=== PATIENT | male | born 1955 | race Caucasian/White ===

== ENCOUNTER 2016-07-13 07:15 | Inpatient (IN) | payer OTHER ==
--- NOTE | 2016-07-13 07:19 | PDOC ---
[id number] 4d CHEST PAIN Time Seen by Provider: 07/13/16 07:19 History Source: Patient Exam Limitations: No Limitations - History of Present Illness Initial Comments: 60 yo M history DM2, anemia presents with abrupt onset substernal chest pain x1.5 hrs. He states that he woke up with the pain around 5:30am, felt short of breath with pain radiating down his right arm. +Sweating, nausea, vomiting. No prior similar symptoms. No prior cardiac history. Past History - Past Medical History Allergies/Adverse Reactions: Allergies Allergy/AdvReac Type Severity Reaction Status Date / Time No Known Allergies Allergy Verified 07/13/16 08:18 Home Medications: Ambulatory Orders Allopurinol [Zyloprim] 300 mg PO DAILY 12/25/11 Folic Acid - 1 mg PO DAILY 12/25/11 Metformin HCl [Glucophage] 1,000 mg PO BID 12/25/11 Canagliflozin [Invokana] 100 mg PO DAILY 07/13/16 Doxycycline Hyclate 100 mg PO BID 07/13/16 Ibuprofen [Motrin -] 600 mg PO PRN PRN 07/13/16 Anemia: Yes Diabetes: Yes - Psycho/Social/Smoking Cessation Hx Anxiety: No Suicidal Ideation: No Smoking Status: No Smoking History: Unknown if ever smoked Number of Cigarettes Smoked Daily: 0 Review of Systems - Review of Systems Able to Perform ROS?: Yes Comments:: GENERAL/CONSTITUTIONAL: No fever or chills. No weakness. HEAD, EYES, EARS, NOSE AND THROAT: No change in vision. No ear pain or discharge. No sore throat. CARDIOVASCULAR: +Chest pain and shortness of breath. RESPIRATORY: No cough, wheezing, or hemoptysis. GASTROINTESTINAL: +Nausea, vomiting. No diarrhea or constipation. GENITOURINARY: No dysuria, frequency, or change in urination. MUSCULOSKELETAL: No joint or muscle swelling or pain. No neck or back pain. SKIN: No rash NEUROLOGIC: No headache, vertigo, loss of consciousness, or change in strength/ sensation. ENDOCRINE: No increased thirst. No abnormal weight change. HEMATOLOGIC/LYMPHATIC: No anemia, easy bleeding, or history of blood clots. ALLERGIC/IMMUNOLOGIC: No hives or skin allergy. *Physical Exam - Physical Exam Comments: GENERAL: Awake, alert, and fully oriented. Anxious. HEAD: No signs of trauma EYES: PERRLA, EOMI, sclera anicteric, conjunctiva clear ENT: Auricles normal inspection, hearing grossly normal, nares patent, oropharynx clear without exudates. Moist mucosa NECK: Normal ROM, supple, no lymphadenopathy, JVD, or masses LUNGS: Breath sounds equal, clear to auscultation bilaterally. No wheezes, and no crackles HEART: Regular rate and rhythm, normal S1 and S2, no murmurs, rubs or gallops ABDOMEN: Soft, nontender, normoactive bowel sounds. No guarding, no rebound. No masses EXTREMITIES: Normal range of motion, no edema. No clubbing or cyanosis. No cords, erythema, or tenderness NEUROLOGICAL: Cranial nerves II through XII grossly intact. Normal speech, normal gait SKIN: Warm, Dry, normal turgor, no rashes or lesions noted. Heart Score/ECG Review - History History: Highly suspicious - Electrocardiogram EKG: Non specific repolarization disturbance - Age Age: 45-65 - Risk Factors Risk Factors Heart Score: Yes Hx Diabetes Based on the list above the patient has:: 1-2 risk factors - Troponin Troponin: </= normal limit - Score Heart Score - Total: 5 - ECG Impressions Comment:: 07/13/16 07:27 EKG read 07:22- NSR 73 bpm, RBBB, no acute ST/T changes. +Motion artifact. 07/13/16 07:41 Repeat EKG- 76 bpm, RBBB, no ST/T changes. ED Treatment Course - LABORATORY CBC & Chemistry Diagram: 07/13/16 05:00 07/13/16 07:25 Medical Decision Making - Critical Care Time Total Critical Care Time (minutes): 35 Critical Care Statement: The care of this patient involved high complexity decision making to prevent further life threatening deterioration of the patient 's condition and/or to evalute & treat vital organ system(s) failure or risk of failure. - Medical Decision Making 07/13/16 07:47 Pt states his symptoms have improved with aspirin and nitro. Repeat EKG with no ST elevations (initial EKGs limited by motion artifact). Will cont to monitor. Awaiting Steve, then admission vs transfer depending on results. *DC/Admit/Observation/Transfer Diagnosis at time of Disposition: Chest pain Qualifiers: Chest pain type: unspecified Qualified Code(s): R07.9 - Chest pain, unspecified - Discharge Dispostion Condition at time of disposition: Guarded Admit: Yes
[2016-07-13] MEDS ORDERED: ASPIRIN 81 MG CHEWABLE TABLETS PO ONE (07:22)
[2016-07-13] MEDS ORDERED: NITROGLYCERIN SUBLINGUAL 1/150 0.4 MG TAB SL ONE (07:24)
[2016-07-13] MEDS ORDERED: ASPIRIN 81 MG CHEWABLE TABLETS ONE (07:30)
[2016-07-13 07:31] VITALS: BMI 23.7
[2016-07-13] MEDS ORDERED: NITROGLYCERIN SUBLINGUAL 1/150 0.4 MG TAB ONE (07:31)
[2016-07-13 07:54] LABS: BASOPHIL 1.5 % (0-2.0); EOSINOPHIL 1.4 % (0-4.5); MCH 29.4 pg (25.7-33.7); MCHC 34.2 g/dl (32.0-35.9); MEAN CELL VOLUME 86.1 fl (80-96); MEAN PLT VOLUME 11.1 fl (7.5-11.1); NEUTROPHILS 47.9 % (42.8-82.8); PLATELET COUNT 192 K/MM3 (134-434); RDW 13.4 % (11.9-15.9); WHITE BLOOD COUNT 4.9 K/mm3 (4.0-10.0)
[2016-07-13 08:10] LABS: ALBUMIN 4.5 g/dl (3.5-5.0); ALK PHOS 52 U/L (32-92); ANION GAP 11 (8-16); BILIRUBIN,TOTAL 0.9 mg/dl (0.2-1.0); CALCIUM 9.3 mg/dl (8.4-10.2); CO2 22 mmol/L (22-28); CREATININE 0.9 mg/dl (0.6-1.3); GLUCOSE,RANDOM 199 mg/dl (74-106); SGOT/AST 45 U/L (10-42); SGPT/ALT 30 U/L (10-40); TOT PROT 7.3 g/dl (6.4-8.3)
[2016-07-13 08:21] LABS: ACTIVATED PTT 26.5 SECONDS (24.0-38.9); INR 1.04 (0.82-1.09); PROTHROMBIN TIME (PATIENT) 11.6 SEC (10.2-13.0)
[2016-07-13 08:48] LABS: TROPONIN I (DFP) 0.13 ng/ml (0.03-0.50)
[2016-07-13] MEDS ORDERED: NITROGLYCERIN SUBLINGUAL 1/150 0.4 MG TAB SL PRN ×2 (09:00→12:20)
[2016-07-13] MEDS ORDERED: ACETAMINOPHEN 325 MG TABLET (FP) PO PRN (09:00)
[2016-07-13] MEDS ORDERED: ONDANSETRON 4 MG/2 ML VIAL IVPB PRN (09:00)
--- NOTE | 2016-07-13 09:05 | HP ---
CHIEF COMPLAINT: Chest pain PCP: Dr. Vazquez HISTORY OF PRESENT ILLNESS: This is a 60 year old male with a history of NIDDM who presented to the [facility] ED today complaining of sudden onset of chest pain at about 5:45am. The patient was awake but laying in bed at the time. He reports radiation of the pain down both arms (R>L) and associated shortness of breath. He took Motrin without relief of pain. He then vomited several times. On arrival to the ED, he was noted to be diaphoretic. Of note, the patient was recently diagnosed with influenza at an urgent care on Thursday, 07/09 and was prescribed Tamiflu (which he did not take) and doxycycline (which he is taking). 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 Smoking: Former regular smoker, still smokes occasionally Alcohol: None Family History: Mother with CAD/VT at age 72 Allergies No Known Allergies Allergy (Verified 07/13/16 08:18) HOME MEDICATIONS: Home Medications Medication Instructions Recorded Allopurinol [Zyloprim] 100 mg PO DAILY 12/25/11 Folic Acid - 1 mg PO DAILY 12/25/11 Metformin HCl [Glucophage] 250 mg PO BID 12/25/11 Doxycycline Hyclate 100 mg PO BID 07/13/16 Ibuprofen [Motrin -] 600 mg PO PRN PRN 07/13/16 REVIEW OF SYSTEMS CONSTITUTIONAL: Absent: fever, chills, diaphoresis, generalized weakness, malaise, loss of appetite, weight change HEENT: Absent: rhinorrhea, nasal congestion, throat pain, throat swelling, difficulty swallowing, mouth swelling, ear pain, eye pain, visual changes CARDIOVASCULAR: See HPI RESPIRATORY: Cough productive of scant sputum Absent: dyspnea with exertion, orthopnea, wheezing, stridor, hemoptysis GASTROINTESTINAL: Absent: abdominal pain, abdominal distension, nausea, vomiting, diarrhea, constipation, melena, hematochezia GENITOURINARY: Absent: dysuria, frequency, urgency, hesitancy, hematuria, flank pain, genital pain MUSCULOSKELETAL: Absent: myalgia, arthralgia, joint swelling, back pain, neck pain SKIN: Absent: rash, itching, pallor HEMATOLOGIC/IMMUNOLOGIC: Absent: easy bleeding, easy bruising, lymphadenopathy, frequent infections ENDOCRINE: Absent: unexplained weight gain, unexplained weight loss, heat intolerance, cold intolerance NEUROLOGIC: Absent: headache, focal weakness or paresthesias, dizziness, unsteady gait, seizure, mental status changes, bladder or bowel incontinence PSYCHIATRIC: "Under a lot of stress lately", not sleeping well Absent: depression, suicidal or homicidal ideation, hallucinations. PHYSICAL EXAMINATION Vital Signs - 24 hr 07/13/16 07/13/16 07/13/16 07:16 07:45 08:15 Temperature 97.4 F L Pulse Rate 90 Pulse Rate [ 80 75 Apical] Respiratory 24 14 18 Rate Blood Pressure 151/97 Blood Pressure 135/81 132/81 [Arm] O2 Sat by Pulse 100 99 100 Oximetry (%) 07/13/16 08:38 Temperature Pulse Rate Pulse Rate [ 76 Apical] Respiratory 16 Rate Blood Pressure Blood Pressure 132/74 [Arm] O2 Sat by Pulse 100 Oximetry (%) GENERAL: Awake, alert, and fully oriented, in no acute distress. HEAD: Normal with no signs of trauma. EYES: Pupils equal, round and reactive to light, extraocular movements intact, sclera anicteric, conjunctiva clear. No lid lag. EARS, NOSE, THROAT: Ears normal, nares patent, oropharynx clear without exudates. Moist mucous membranes. NECK: Normal range of motion, supple without lymphadenopathy, JVD, or masses. LUNGS: Breath sounds equal, clear to auscultation bilaterally. No wheezes, and no crackles. No accessory muscle use. HEART: Regular rate and rhythm, normal S1 and S2 without murmur, rub or gallop. ABDOMEN: Soft, nontender, not distended, normoactive bowel sounds, no guarding, no rebound, no masses. No hepatomegaly or splenomegaly. MUSCULOSKELETAL: Normal range of motion at all joints. No bony deformities or tenderness. No CVA tenderness. UPPER EXTREMITIES: 2+ pulses, warm, well-perfused. No cyanosis. No clubbing. No peripheral edema. LOWER EXTREMITIES: 2+ pulses, warm, well-perfused. No calf tenderness. No peripheral edema. NEUROLOGICAL: Cranial nerves II-XII intact. Normal speech. Normal gait. PSYCHIATRIC: Anxious affect. SKIN: Warm, dry, normal turgor, no rashes or lesions noted, normal capillary refill. Laboratory Results - last 24 hr 07/13/16 07/13/16 07/13/16 05:00 07:25 07:25 WBC 4.9 D RBC 5.77 H Hgb 17.0 H Hct 49.7 H MCV 86.1 MCHC 34.2 RDW 13.4 Plt Count 192 MPV 11.1 Neutrophils % 47.9 D Lymphocytes % 35.5 D Monocytes % 13.7 H Eosinophils % 1.4 D Basophils % 1.5 D INR 1.04 PTT (Actin FS) 26.5 Sodium 136 Potassium 3.9 Chloride 103 Carbon Dioxide 22 Anion Gap 11 BUN 22 H D Creatinine 0.9 D Creat Clearance w eGFR > 60 Random Glucose 199 H Calcium 9.3 Total Bilirubin 0.9 D AST 45 H D ALT 30 D Alkaline Phosphatase 52 Creatine Kinase Troponin I Total Protein 7.3 Albumin 4.5 07/13/16 07:37 WBC RBC Hgb Hct MCV MCHC RDW Plt Count MPV Neutrophils % Lymphocytes % Monocytes % Eosinophils % Basophils % INR PTT (Actin FS) Sodium Potassium Chloride Carbon Dioxide Anion Gap BUN Creatinine Creat Clearance w eGFR Random Glucose Calcium Total Bilirubin AST ALT Alkaline Phosphatase Creatine Kinase 148 Troponin I 0.13 Total Protein Albumin ASSESSMENT/PLAN: 60 year old male with chest pain. 1. Chest pain -Monitor on telemetry -Serial troponins to rule out VT -Check lipid profile -Continue ntg SL as needed for chest pain -Continue ASA 81mg daily -Echocardiogram -Cardiology evaluation 2. NIDDM -Hold Metformin/Invokana while inpatient -ISS, FSACHS -Diabetic diet -Check HgbA1C 3. Ppx -Lovenox 40mg sq daily -Ambulation DISPO: Transfer to telemetry at [facility]. Visit type - Emergency Visit Emergency Visit: Yes ED Registration Date: 07/13/16 Care time: The patient presented to the Emergency Department on the above date and was hospitalized for further evaluation of their emergent condition. - New Patient This patient is new to me today: Yes Date on this admission: 07/13/16 - Critical Care Critical Care patient: Yes Total Critical Care Time (in minutes): 35 Critical Care Statement: The care of this patient involved high complexity decision making to prevent further life threatening deterioration of the patient 's condition and/or to evalute & treat vital organ system(s) failure or risk of failure.
[2016-07-13 09:20] LABS: CHOLESTEROL 167 mg/dl
[2016-07-13] MEDS ORDERED: ALLOPURINOL 100 MG TABLET (FP) PO SCH (10:00)
[2016-07-13] MEDS ORDERED: ENOXAPARIN NA (PORCINE) 40 MG/0.4 ML DISP.SYRIN SQ SCH (10:00)
[2016-07-13] MEDS ORDERED: ASPIRIN COATED 81 MG TABLET.EC PO SCH (10:00)
[2016-07-13] MEDS ORDERED: FOLIC ACID 1 MG TABLET (FP) PO SCH (10:00)
--- NOTE | 2016-07-13 11:22 | EKG ---
Test Reason : Blood Pressure : / mmHG Vent. Rate : 076 BPM Atrial Rate : 076 BPM P-R Int : 158 ms QRS Dur : 128 ms QT Int : 424 ms P-R-T Axes : 047 040 029 degrees QTc Int : 477 ms NORMAL SINUS RHYTHM RIGHT BUNDLE BRANCH BLOCK POSSIBLE INFERIOR INFARCT , AGE UNDETERMINED NO PREVIOUS ECGS AVAILABLE Confirmed by MD MALDONADO MARJORY ([id number]) on 07/13/2016 11:22:03 AM Referred By: MICHELLE RICO Confirmed By:SARAI MALDONADO MD
[2016-07-13] MEDS: INSULIN SLIDING SCALE (NOVOLOG) 1 VIAL SQ SCH ×3 (11:24→22:34)
[2016-07-13] MEDS ORDERED: ALLOPURINOL 300 MG TABLET (FP) PO SCH (12:00)
[2016-07-13] MEDS: ALPRAZolam 0.25 MG TABLET PO PRN ×2 (12:53→19:47)
[2016-07-13 15:15] LABS: TROPONIN I 2.32 ng/ml (0.00-0.05)
--- NOTE | 2016-07-13 16:07 | HOSP ---
Subjective - Review of Symptoms Events since last encounter: Patient has complained of intermittent discomfort across his chest and down his right arm associated with nausea. He denies palpitations, diaphoresis, shortness of breath. He has had some relief with SLNTG and Xanax. Currently he has no pain. Troponin I 0.15 -> 2.32. Sinus bradycardia noted on monitor. Physical Examination Vital Signs: Vital Signs Temperature 98.7 F 07/13/16 14:33 Pulse Rate 66 07/13/16 14:33 Respiratory Rate 18 07/13/16 14:33 Blood Pressure 150/90 07/13/16 14:33 O2 Sat by Pulse Oximetry (%) 100 07/13/16 14:33 Constitutional: Yes: Anxious Cardiovascular: Yes: Bradycardia, S1, S2. No: JVD, Gallop, Murmur, Rub Respiratory: Yes: CTA Bilaterally Gastrointestinal: Yes: Normal Bowel Sounds, Soft. No: Distention, Tenderness Edema: No Peripheral Pulses WNL: Yes Neurological: Yes: Alert, Oriented Labs: Laboratory Tests 07/13/16 07/13/16 07/13/16 05:00 07:25 07:25 WBC 4.9 D RBC 5.77 H Hgb 17.0 H Hct 49.7 H MCV 86.1 MCHC 34.2 RDW 13.4 Plt Count 192 MPV 11.1 Neutrophils % 47.9 D Lymphocytes % 35.5 D Monocytes % 13.7 H Eosinophils % 1.4 D Basophils % 1.5 D INR 1.04 PTT (Actin FS) 26.5 Sodium 136 Potassium 3.9 Chloride 103 Carbon Dioxide 22 Anion Gap 11 BUN 22 H D Creatinine 0.9 D Creat Clearance w eGFR > 60 POC Glucometer Random Glucose 199 H Calcium 9.3 Total Bilirubin 0.9 D AST 45 H D ALT 30 D Alkaline Phosphatase 52 Creatine Kinase Creatine Kinase Index CK-MB (CK-2) CK-MB (CK-2) Rel Index Troponin I Total Protein 7.3 Albumin 4.5 Triglycerides Cholesterol Total LDL Cholesterol HDL Cholesterol 07/13/16 07/13/16 07/13/16 07:25 07:37 11:18 WBC RBC Hgb Hct MCV MCHC RDW Plt Count MPV Neutrophils % Lymphocytes % Monocytes % Eosinophils % Basophils % INR PTT (Actin FS) Sodium Potassium Chloride Carbon Dioxide Anion Gap BUN Creatinine Creat Clearance w eGFR POC Glucometer 114 Random Glucose Calcium Total Bilirubin AST ALT Alkaline Phosphatase Creatine Kinase 148 Creatine Kinase Index CK-MB (CK-2) CK-MB (CK-2) Rel Index Troponin I 0.13 Total Protein Albumin Triglycerides 239 H Cholesterol 167 Total LDL Cholesterol 93 HDL Cholesterol 26 L 07/13/16 07/13/16 07/13/16 13:35 13:35 13:56 WBC RBC Hgb Hct MCV MCHC RDW Plt Count MPV Neutrophils % Lymphocytes % Monocytes % Eosinophils % Basophils % INR PTT (Actin FS) Sodium Potassium Chloride Carbon Dioxide Anion Gap BUN Creatinine Creat Clearance w eGFR POC Glucometer 147 Random Glucose Calcium Total Bilirubin AST ALT Alkaline Phosphatase Creatine Kinase 267 Creatine Kinase Index 5.4 H CK-MB (CK-2) 14.459 H CK-MB (CK-2) Rel Index Cancelled Troponin I 2.32 H* Total Protein Albumin Triglycerides Cholesterol Total LDL Cholesterol HDL Cholesterol EKG: Sinus rhythm, rate 61, RBBB, inferior Q waves, unchanged from earlier Hospitalist Encounter Assessment: Acute NSTEMI Recommendations/Interventions: 1. Continue aspirin 2. Start Lipitor 3. Start heparin IV drip 4. No beta can secondary to bradycardia 5. Oxygen @ 2 LPM 6. Morphine 2 mg IVP as needed 7. Nitroglycerin IV drip for persistent chest pain 8. Continue to follow troponin 9. Echocardiogram 10. Cardiology consult for catheterization Discussed with Dr. Stevenson, the patient and the patient's .
[2016-07-13] MEDS ORDERED: HEPARIN NA (PORCINE) 5,000 UNITS/ML 1ML VIAL IVPUSH ONE (16:08)
[2016-07-13] MEDS ORDERED: HEPARIN NA (PORCINE) 5,000 UNITS/ML 1ML VIAL IVPUSH PRN ×2 (16:08)
[2016-07-13] MEDS ORDERED: ATORVASTATIN CA 80 MG TABLET (FP) PO SCH ×2 (16:15→22:00)
[2016-07-13] MEDS ORDERED: HEPARIN INFUSION - 500 ML IV SCH (16:15)
[2016-07-13] MEDS ORDERED: metFORMIN HCL 500 MG TABLET (FP) PO SCH (16:30)
[2016-07-13] MEDS ORDERED: HEPARIN - 25,000 UNIT in SODIUM CHLORIDE 495 ML IV SCH (16:30)
[2016-07-13] MEDS: morphine CARPU-JECT 2 MG/1 ML DISP.SYRIN IVPUSH PRN ×2 (17:11→20:18)
[2016-07-13] MEDS ORDERED: NITROGLYCERIN IV SCH ×2 (17:15→17:22)
[2016-07-13] MEDS ORDERED: SODIUM CHLORIDE IV SCH ×2 (17:15→17:22)
[2016-07-13] MEDS: SODIUM CHLORIDE IVPB SCH ×2 (18:20→20:00)
[2016-07-13] MEDS: NITROGLYCERIN IVPB SCH ×2 (18:20→20:00)
[2016-07-13 20:30] LABS: TROPONIN I 8.23 ng/ml (0.00-0.05)
[2016-07-13] MEDS ORDERED: morphine CARPU-JECT 2 MG/1 ML DISP.SYRIN IVPUSH PRN (21:45)
--- NOTE | 2016-07-13 21:52 | HOSP ---
Subjective - Review of Symptoms Subjective: Saw pt. at bedside for active chest pain Increase in Troponin from 2-->8 Pt. states his chest pain is described as chest pressure radiating down his right arm, consisitent with pain from this morning No shortness of breath Pain is described as a chest pressure VS: 122/80, R 18 02 100, HR 80 GEN: NAD, laying in bed HEENT: NCAT, PERRL CARD: RRR S1, S2 RESP: CTAB ABD: BS X4, NTD EXT: - C/C/E CBCD WBC 4.9 K/mm3 (4.0-10.0) D 07/13/16 05:00 RBC 5.77 M/mm3 (4.00-5.60) H 07/13/16 05:00 Hgb 17.0 GM/dl (11.7-16.9) H 07/13/16 05:00 Hct 49.7 % (35.4-49) H 07/13/16 05:00 MCV 86.1 fl (80-96) 07/13/16 05:00 MCHC 34.2 g/dl (32.0-35.9) 07/13/16 05:00 RDW 13.4 % (11.9-15.9) 07/13/16 05:00 Plt Count 192 K/MM3 (134-434) 07/13/16 05:00 MPV 11.1 fl (7.5-11.1) 07/13/16 05:00 CMP Sodium 136 mmol/L (136-145) 07/13/16 07:25 Potassium 3.9 mmol/L (3.5-5.1) 07/13/16 07:25 Chloride 103 mmol/L (98-107) 07/13/16 07:25 Carbon Dioxide 22 mmol/L (22-28) 07/13/16 07:25 Anion Gap 11 (8-16) 07/13/16 07:25 BUN 22 mg/dl (7-18) H D 07/13/16 07:25 Creatinine 0.9 mg/dl (0.6-1.3) D 07/13/16 07:25 Creat Clearance w eGFR > 60 (>60) 07/13/16 07:25 Random Glucose 199 mg/dl (74-106) H 07/13/16 07:25 Calcium 9.3 mg/dl (8.4-10.2) 07/13/16 07:25 Total Bilirubin 0.9 mg/dl (0.2-1.0) D 07/13/16 07:25 AST 45 U/L (10-42) H D 07/13/16 07:25 ALT 30 U/L (10-40) D 07/13/16 07:25 Alkaline Phosphatase 52 U/L (32-92) 07/13/16 07:25 Total Protein 7.3 g/dl (6.4-8.3) 07/13/16 07:25 Albumin 4.5 g/dl (3.5-5.0) 07/13/16 07:25 CARDIAC ENZYMES Creatine Kinase 480 IU/L (39-308) H D 07/13/16 19:25 Troponin I 8.23 ng/ml (0.00-0.05) H* D 07/13/16 19:25 EKG: Reviewed-NSR 75 IWMI, rbbb A/P.) 60 M with NSTEMI NSTEMI - Hep gtt continue, plavix - Nitro gtt - Morphine prn pain - BB when able - ASA - Cardiology notified Dr. Stevenson- - Transfer for Cath in Am, Transfer to ICU - Case discussed with ICU Physician Obstetrician who, accepted pt. - CC Time: 40 minutes Physical Examination Vital Signs: Vital Signs Temperature 98.6 F 07/13/16 17:24 Pulse Rate 64 07/13/16 17:24 Respiratory Rate 18 07/13/16 17:24 Blood Pressure 150/90 07/13/16 14:33 O2 Sat by Pulse Oximetry (%) 100 07/13/16 14:33
[2016-07-13] MEDS ORDERED: CLOPIDOGREL BISULFATE 75 MG TABLET (FP) PO ONE (22:07)
--- NOTE | 2016-07-13 22:11 | HOSP ---
Subjective - Review of Symptoms Events since last encounter: Paged at approximately 8:00 pm regarding Mr. Al who had an elevation in troponin from 2.32 to 8.23. Pt was having "severe chest pain" that was similar to his presenting pain. Pt was given morphine 2mg. EKG was done which did not show any changes from initial presenting EKG. Latest EKG showed RBBB, inferior wall NSTEMI, NSR at 75 bpm, qtc at 437. At approximately 10:00 PM I checked in on patient again and pt seen sleeping comfortably in bed. Vital Signs Temperature 98.2 F 07/13/16 20:00 Pulse Rate 68 07/13/16 20:00 Respiratory Rate 20 07/13/16 20:00 Blood Pressure 119/74 07/13/16 20:00 O2 Sat by Pulse Oximetry (%) 98 07/13/16 20:00 PE -Gen: AAOx3, NAD, sleeping in bed comfortably -C/V: RRR, S1 S2 + -Resp: CTA B/L, no wheezing -Abd: Soft, nontender, normoactive bowel sounds -Ext: no edema, warm to touch CBCD WBC 4.9 K/mm3 (4.0-10.0) D 07/13/16 05:00 RBC 5.77 M/mm3 (4.00-5.60) H 07/13/16 05:00 Hgb 17.0 GM/dl (11.7-16.9) H 07/13/16 05:00 Hct 49.7 % (35.4-49) H 07/13/16 05:00 MCV 86.1 fl (80-96) 07/13/16 05:00 MCHC 34.2 g/dl (32.0-35.9) 07/13/16 05:00 RDW 13.4 % (11.9-15.9) 07/13/16 05:00 Plt Count 192 K/MM3 (134-434) 07/13/16 05:00 MPV 11.1 fl (7.5-11.1) 07/13/16 05:00 CMP Sodium 136 mmol/L (136-145) 07/13/16 07:25 Potassium 3.9 mmol/L (3.5-5.1) 07/13/16 07:25 Chloride 103 mmol/L (98-107) 07/13/16 07:25 Carbon Dioxide 22 mmol/L (22-28) 07/13/16 07:25 Anion Gap 11 (8-16) 07/13/16 07:25 BUN 22 mg/dl (7-18) H D 07/13/16 07:25 Creatinine 0.9 mg/dl (0.6-1.3) D 07/13/16 07:25 Creat Clearance w eGFR > 60 (>60) 07/13/16 07:25 Random Glucose 199 mg/dl (74-106) H 07/13/16 07:25 Calcium 9.3 mg/dl (8.4-10.2) 07/13/16 07:25 Total Bilirubin 0.9 mg/dl (0.2-1.0) D 07/13/16 07:25 AST 45 U/L (10-42) H D 07/13/16 07:25 ALT 30 U/L (10-40) D 07/13/16 07:25 Alkaline Phosphatase 52 U/L (32-92) 07/13/16 07:25 Total Protein 7.3 g/dl (6.4-8.3) 07/13/16 07:25 Albumin 4.5 g/dl (3.5-5.0) 07/13/16 07:25 CARDIAC ENZYMES Creatine Kinase 480 IU/L (39-308) H D 07/13/16 19:25 Troponin I 8.23 ng/ml (0.00-0.05) H* D 07/13/16 19:25 EKG showed RBBB, inferior wall NSTEMI, NSR at 75 bpm, qtc at 437. Physical Examination Vital Signs: Vital Signs Temperature 98.2 F 07/13/16 20:00 Pulse Rate 68 07/13/16 20:00 Respiratory Rate 20 07/13/16 20:00 Blood Pressure 119/74 07/13/16 20:00 O2 Sat by Pulse Oximetry (%) 98 07/13/16 20:00 Hospitalist Encounter Assessment: 60 y/o m w/PMH of DM admitted for inferior wall NSTEMI. -NSTEMI -c/w heparin drip -c/w nitro drip -morphine for pain, prn -continue to trend trops -Spoke w/ Dr. Stevenson who recommends pt be transferred in the AM if pt remains stable (currently pt is sleeping, no pain). Pt to given be plavix 300 mg po once at this time. Dr. Stevenson also recommends pt be transferred to ICU at this time. Visit type - Emergency Visit Emergency Visit: Yes ED Registration Date: 07/13/16 Care time: The patient presented to the Emergency Department on the above date and was hospitalized for further evaluation of their emergent condition. - New Patient This patient is new to me today: Yes Date on this admission: 07/17/16 - Critical Care Critical Care patient: Yes Total Critical Care Time (in minutes): 37 Critical Care Statement: The care of this patient involved high complexity decision making to prevent further life threatening deterioration of the patient 's condition and/or to evalute & treat vital organ system(s) failure or risk of failure.
--- NOTE | 2016-07-13 22:26 | EKG ---
Test Reason : Blood Pressure : / mmHG Vent. Rate : 061 BPM Atrial Rate : 061 BPM P-R Int : 160 ms QRS Dur : 128 ms QT Int : 420 ms P-R-T Axes : 044 053 015 degrees QTc Int : 422 ms NORMAL SINUS RHYTHM RIGHT BUNDLE BRANCH BLOCK POSSIBLE INFERIOR INFARCT (CITED ON OR BEFORE 13-JUL-2016) ABNORMAL ECG WHEN COMPARED WITH ECG OF 13-JUL-2016 13:07, NO SIGNIFICANT CHANGE WAS FOUND Confirmed by KEVIN GAINES MD ([id number]) on 07/13/2016 10:26:29 PM Referred By: Nadia SYKES Confirmed By:KEVIN GAINES MD
--- NOTE | 2016-07-13 22:27 | EKG ---
Test Reason : Blood Pressure : / mmHG Vent. Rate : 060 BPM Atrial Rate : 060 BPM P-R Int : 154 ms QRS Dur : 128 ms QT Int : 418 ms P-R-T Axes : 050 032 014 degrees QTc Int : 418 ms NORMAL SINUS RHYTHM RIGHT BUNDLE BRANCH BLOCK INFERIOR INFARCT (CITED ON OR BEFORE 13-JUL-2016) ABNORMAL ECG WHEN COMPARED WITH ECG OF 13-JUL-2016 07:41, QT HAS SHORTENED Confirmed by EDER BOLTON, KEVIN ([id number]) on 07/13/2016 10:27:02 PM Referred By: Nadia SYKES Confirmed By:KEVIN GAINES MD
--- NOTE | 2016-07-14 00:08 | CON.CARD ---
Consult Consult Specialty:: Cardiology Referred by:: Hospitalist Reason for Consultation:: Cardiac evaluation - History of Present Illness Chief Complaint: Chest pain with NSTEMI History of Present Illness: Patient is a 60 year old male with underlying type 2 diabetes mellitus (on Invokana) and hypertriglyceridemia (previously on Tricor now not on any medications) presented to ED early today with chest pain in the mid substernum radiating to both left and right arm. Initial troponin was 0.13 which increased to 2.32 and then now 8.23. He was started on Heparin drip with bolus, Lipitor 80 mg and ASA and Plavix. He was also put on IV NTG and was given Morphine. ECG demonstrated sinus rhythm with RBBB and IWMI. Currently his chest pain has diminished to 1 out of 10. He denies shortness of breath or palpitations. He denies paroxysmal nocturnal dyspnea or orthopnea. He denies fever or chills. He denies headache or lightheadedness. Cardiology consultation was called for further evaluation. Patient was seen from 11:30 pm to 12:30 am 07/14. - History Source History Provided By: Patient, Family Member, Medical Record Limitations to Obtaining History: No Limitations - Past Medical History Cardio/Vascular: Yes: Hyperlipdemia Endocrine: Yes: Diabetes Mellitus - Alcohol/Substance Use Hx Alcohol Use: No - Smoking History Smoking history: Current some day smoker Have you smoked in the past 12 months: Yes Aproximately how many cigarettes per day: 20 (per week) - Social History Usual Living Arrangement: With Spouse Home Medications - Allergies Allergies/Adverse Reactions: Allergies Allergy/AdvReac Type Severity Reaction Status Date / Time No Known Allergies Allergy Verified 07/13/16 08:18 - Home Medications Home Medications: Ambulatory Orders Allopurinol [Zyloprim] 300 mg PO DAILY 12/25/11 Folic Acid - 1 mg PO DAILY 12/25/11 Metformin HCl [Glucophage] 1,000 mg PO BID 12/25/11 Canagliflozin [Invokana] 100 mg PO DAILY 07/13/16 Doxycycline Hyclate 100 mg PO BID 07/13/16 Ibuprofen [Motrin -] 600 mg PO PRN PRN 07/13/16 Family Disease History - Family Disease History Family Disease History: Diabetes: Father (Prostate [place]), Heart Disease: Mother ( [place]), [place]: Father Review of Systems - Review of Systems Constitutional: denies: Chills, Fever Cardiovascular: reports: Chest Pain. denies: Palpitations, Shortness of Breath Respiratory: denies: Cough, Hemoptysis, Orthopnea, PND, SOB, SOB on Exertion Gastrointestinal: reports: Nausea. denies: Abdominal Pain, Constipation, Diarrhea, Melena, Rectal Bleeding, Vomiting Genitourinary: denies: Dysuria Neurological: denies: Dizziness, Headache, Seizure, Syncope Vital Signs: Vital Signs Temperature 97.8 F 07/13/16 22:47 Pulse Rate 74 07/13/16 22:47 Respiratory Rate 20 07/13/16 22:47 Blood Pressure 126/75 07/13/16 22:47 O2 Sat by Pulse Oximetry (%) 98 07/13/16 20:00 Neck: Yes: Supple Respiratory: Yes: CTA Bilaterally Gastrointestinal: Yes: Normal Bowel Sounds, Soft. No: Tenderness Cardiovascular: Yes: Regular Rate and Rhythm JVD: No Carotid Bruit: No PMI: Non-Displaced Heart Sounds: Yes: S1, S2. No: Clicks, Gallop Murmur: No: Systolic Murmur, Diastolic Murmur Edema: No Peripheral Pulses WNL: Yes - Other Data Labs, Other Data: INR, PTT INR 1.04 (0.82-1.09) 07/13/16 07:25 Troponin, BNP 07/13/16 07/13/16 13:35 19:25 Troponin I 2.32 H* 8.23 H* D Laboratory Results - last 24 hr 07/13/16 07/13/16 07/13/16 05:00 07:25 07:25 WBC 4.9 D RBC 5.77 H Hgb 17.0 H Hct 49.7 H MCV 86.1 MCHC 34.2 RDW 13.4 Plt Count 192 MPV 11.1 Neutrophils % 47.9 D Lymphocytes % 35.5 D Monocytes % 13.7 H Eosinophils % 1.4 D Basophils % 1.5 D INR 1.04 PTT (Actin FS) 26.5 Sodium 136 Potassium 3.9 Chloride 103 Carbon Dioxide 22 Anion Gap 11 BUN 22 H D Creatinine 0.9 D Creat Clearance w eGFR > 60 POC Glucometer Random Glucose 199 H Calcium 9.3 Total Bilirubin 0.9 D AST 45 H D ALT 30 D Alkaline Phosphatase 52 Creatine Kinase Creatine Kinase Index CK-MB (CK-2) CK-MB (CK-2) Rel Index Troponin I Total Protein 7.3 Albumin 4.5 Triglycerides Cholesterol Total LDL Cholesterol HDL Cholesterol 07/13/16 07/13/16 07/13/16 07:25 07:37 11:18 WBC RBC Hgb Hct MCV MCHC RDW Plt Count MPV Neutrophils % Lymphocytes % Monocytes % Eosinophils % Basophils % INR PTT (Actin FS) Sodium Potassium Chloride Carbon Dioxide Anion Gap BUN Creatinine Creat Clearance w eGFR POC Glucometer 114 Random Glucose Calcium Total Bilirubin AST ALT Alkaline Phosphatase Creatine Kinase 148 Creatine Kinase Index CK-MB (CK-2) CK-MB (CK-2) Rel Index Troponin I 0.13 Total Protein Albumin Triglycerides 239 H Cholesterol 167 Total LDL Cholesterol 93 HDL Cholesterol 26 L 07/13/16 07/13/16 07/13/16 13:35 13:35 13:56 WBC RBC Hgb Hct MCV MCHC RDW Plt Count MPV Neutrophils % Lymphocytes % Monocytes % Eosinophils % Basophils % INR PTT (Actin FS) Sodium Potassium Chloride Carbon Dioxide Anion Gap BUN Creatinine Creat Clearance w eGFR POC Glucometer 147 Random Glucose Calcium Total Bilirubin AST ALT Alkaline Phosphatase Creatine Kinase 267 Creatine Kinase Index 5.4 H CK-MB (CK-2) 14.459 H CK-MB (CK-2) Rel Index Cancelled Troponin I 2.32 H* Total Protein Albumin Triglycerides Cholesterol Total LDL Cholesterol HDL Cholesterol 07/13/16 07/13/16 07/13/16 17:03 19:25 19:25 WBC RBC Hgb Hct MCV MCHC RDW Plt Count MPV Neutrophils % Lymphocytes % Monocytes % Eosinophils % Basophils % INR PTT (Actin FS) Sodium Potassium Chloride Carbon Dioxide Anion Gap BUN Creatinine Creat Clearance w eGFR POC Glucometer 191 Random Glucose Calcium Total Bilirubin AST ALT Alkaline Phosphatase Creatine Kinase 480 H D Creatine Kinase Index 6.2 H* CK-MB (CK-2) 30.057 H CK-MB (CK-2) Rel Index Cancelled Troponin I 8.23 H* D Total Protein Albumin Triglycerides Cholesterol Total LDL Cholesterol HDL Cholesterol Sinus rhythm with RBBB and IWMI Imaging - Results Chest X-ray: Report Reviewed (Unremarkable) EKG: Report Reviewed Problem List - Problems (1) Chest pain Code(s): R07.9 - CHEST PAIN, UNSPECIFIED Qualifiers: Chest pain type: unspecified Qualified Code(s): R07.9 - Chest pain, unspecified (2) CAD (coronary artery disease) Code(s): I25.10 - ATHSCL HEART DISEASE OF [place] CORONARY ARTERY W/O ANG PCTRS Qualifiers: Coronary Disease-Associated Artery/Lesion type: [place] artery [place] vs. transplanted heart: [place] heart Associated angina: with unstable angina Qualified Code(s): I25.110 - Atherosclerotic heart disease of [place] coronary artery with unstable angina pectoris (3) NSTEMI (non-ST elevated myocardial infarction) Code(s): I21.4 - NON-ST ELEVATION (NSTEMI) MYOCARDIAL INFARCTION (4) Hypertriglyceridemia Code(s): E78.1 - PURE HYPERGLYCERIDEMIA (5) Diabetes mellitus Code(s): E11.9 - TYPE 2 DIABETES MELLITUS WITHOUT COMPLICATIONS Qualifiers: Diabetes mellitus type: type 2 Diabetes mellitus complication status: without complication Diabetes mellitus penitentiary insulin use: 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 CAD with elevation of troponin c/w NSTEMI - inferior-posterior [place] 2. Type 2 diabetes mellitus 3. Hypertriglyceridemia 4. Hypertension PLAN: 1. Continue Heparin drip 2. Continue IV NTG and titrate 3. Morphine as needed for chest pain 4. Lipitor 80 mg given 5. Plavix bolus was given and continue ASA and Plavix 6. Eventually start beta can +/- ACEI or ARB in view of diabetes mellitus - BP permitting 7. Early cardiac catheterization/coronary angiography (plan for am) Discussed with his by bedside Guarded Also discussed with resident on service - Dr. Kevin Stevenson MD
[2016-07-14] MEDS: SODIUM CHLORIDE IVPB SCH ×2 (00:15→00:33)
[2016-07-14] MEDS: NITROGLYCERIN IVPB SCH ×2 (00:15→00:33)
[2016-07-14] MEDS: HEPARIN - 25,000 UNIT in SODIUM CHLORIDE 495 ML IV SCH ×2 (00:15→00:32)
[2016-07-14] MEDS ORDERED: ONDANSETRON 4 MG/2 ML VIAL IVPB PRN (00:26)
[2016-07-14] MEDS ORDERED: morphine CARPU-JECT 2 MG/1 ML DISP.SYRIN IVPUSH PRN ×2 (00:26)
[2016-07-14] MEDS ORDERED: ALPRAZolam 0.25 MG TABLET PO PRN (00:26)
[2016-07-14] MEDS ORDERED: ACETAMINOPHEN 325 MG TABLET (FP) PO PRN (00:26)
[2016-07-14] MEDS ORDERED: HEPARIN NA (PORCINE) 5,000 UNITS/ML 1ML VIAL IVPUSH PRN ×4 (00:26)
--- NOTE | 2016-07-14 00:47 | CONSULT ---
Consult Consult Specialty:: Pulm/CC - History of Present Illness Chief Complaint: Chest pain History of Present Illness: Pt is a 60yr old man with PMHx including HLD and DM. He presents to the ER on with CC of 8/10 midsternal chest pain radiating to the left/right arm with associated SOB and n/v. In the ER initial troponin 0.13 -->2.32 --> 8.23. Pt endorses intermittent chest pain until around 2230 on 07/13. Pt seen by account manager [id number] at bedside while on telemetry. Pt transferred to the ICU for further management. Upon assessment pt denies current chest pain/headache/sob/n/ v. 115/69, HR 60s, 98% on 2LNC, afebrile, RR 20. - History Source History Provided By: Patient, Family Member, Medical Record Limitations to Obtaining History: No Limitations - Past Medical History Cardio/Vascular: Yes: Hyperlipdemia Endocrine: Yes: Diabetes Mellitus - Alcohol/Substance Use Hx Alcohol Use: No - Smoking History Smoking history: Current some day smoker Have you smoked in the past 12 months: Yes Aproximately how many cigarettes per day: 20 (per week) - Social History Usual Living Arrangement: With Spouse Home Medications - Allergies Allergies/Adverse Reactions: Allergies Allergy/AdvReac Type Severity Reaction Status Date / Time No Known Allergies Allergy Verified 07/13/16 08:18 - Home Medications Home Medications: Ambulatory Orders Allopurinol [Zyloprim] 300 mg PO DAILY 12/25/11 Folic Acid - 1 mg PO DAILY 12/25/11 Metformin HCl [Glucophage] 1,000 mg PO BID 12/25/11 Canagliflozin [Invokana] 100 mg PO DAILY 07/13/16 Doxycycline Hyclate 100 mg PO BID 07/13/16 Ibuprofen [Motrin -] 600 mg PO PRN PRN 07/13/16 Family Disease History - Family Disease History Family Disease History: Diabetes: Father (Prostate [place]), Heart Disease: Mother ( [place]), [place]: Father Review of Systems - Review of Systems Cardiovascular: reports: Chest Pain, Shortness of Breath Gastrointestinal: reports: Vomiting ("water") Neurological: denies: Headache Physical Exam Vital Signs: Vital Signs Period Temp Pulse Resp BP Sys/Viveros Pulse Ox Last 24 Hr 9.4 F-98.7 F 55-90 14-24 115-151/68-97 97-100 Intake & Output 07/11/16 07/12/16 07/13/16 07/14/16 23:59 23:59 23:59 23:59 Weight 170 lb Constitutional: Yes: Well Nourished, Other (appears a little anxious) Eyes: Yes: PERRL HENT: Yes: WNL, Other (small flat red lesions in back of throat) Neck: Yes: WNL Cardiovascular: Yes: S1, S2, Other (see EKG) Respiratory: Yes: CTA Bilaterally Gastrointestinal: Yes: Normal Bowel Sounds, Soft. No: Tenderness ...Rectal Exam: Yes: Deferred Renal/: No: CVA Tenderness - Left, CVA Tenderness - Right Musculoskeletal: Yes: WNL Extremities: Yes: WNL Edema: No Peripheral Pulses WNL: (+2 bilateral pedal pulses) Integumentary: Yes: WNL Neurological: Yes: WNL, Alert Psychiatric: Yes: WNL Labs: Abnormal Lab Results 07/13/16 07/13/16 07/13/16 05:00 07:25 07:25 RBC 5.77 H Hgb 17.0 H Hct 49.7 H Monocytes % 13.7 H PTT (Actin FS) BUN 22 H D Random Glucose 199 H AST 45 H D Creatine Kinase Creatine Kinase Index CK-MB (CK-2) Troponin I Triglycerides 239 H HDL Cholesterol 26 L 07/13/16 07/13/16 07/13/16 13:35 19:25 21:45 RBC Hgb Hct Monocytes % PTT (Actin FS) 44.8 H BUN Random Glucose AST Creatine Kinase 480 H D Creatine Kinase Index 5.4 H 6.2 H* CK-MB (CK-2) 14.459 H 30.057 H Troponin I 2.32 H* 8.23 H* D Triglycerides HDL Cholesterol Imaging - Results Chest X-ray: Report Reviewed, Image Reviewed Assessment/Plan Pt is a 60yr old man with PMHx including DM and HLD. Now in the ICU for management of ACS. Pulm: -O2 support -Incentive spirometer Cardiac -Seen by Dr. Stevenson -Cardiac cath -Continue heparin drip/plavix/asa/statin -Nitro drip prn -Morphine -Serial troponin and EKG ID: Pt endorses recent "flu" >48hrs ago, denies tamiflu -f/u cultures -Monitor off antibiotics for now -Pt with small flat red lesion in back of throat, possibly atypical thrush from DM, consider viral workup if symptoms persist GI: -Hemoconcentrated, will start gentle hydration as pt tolerating PO with one episode of vomiting 07/13 Renal: -Replete electrolyte prn for K 4-5 and Mag goal 2 Neuro -Pain management with morphine Endo: -BGM -Glycemic control Prophylactic -DVT prophylactic covered with heparin drip
[2016-07-14] MEDS ORDERED: SODIUM CHLORIDE 1,000 ML IV SCH (01:00)
[2016-07-14 05:34] LABS: BASOPHIL 0.2 % (0-2.0); EOSINOPHIL 0.4 % (0-4.5); MCH 29.1 pg (25.7-33.7); MCHC 34.5 g/dl (32.0-35.9); MEAN CELL VOLUME 84.3 fl (80-96); MEAN PLT VOLUME 10.1 fl (7.5-11.1); NEUTROPHILS 67.8 % (42.8-82.8); PLATELET COUNT 156 K/MM3 (134-434); RDW 13.9 % (11.9-15.9); WHITE BLOOD COUNT 7.4 K/mm3 (4.0-10.0)
[2016-07-14 06:06] LABS: TROPONIN I 12.91 ng/ml (0.00-0.05)
[2016-07-14 06:08] LABS: CHOLESTEROL 140 mg/dL (50-200); LDL CHOLESTEROL (ONLY SJRH) 99 mg/dL (5-100)
[2016-07-14 06:11] LABS: CREATININE 0.6 mg/dL (0.7-1.3); GLUCOSE,RANDOM 146 mg/dL (74-106)
[2016-07-14 06:12] LABS: ALBUMIN 3.4 g/dl (3.4-5.0); ANION GAP 11 (8-16); BILIRUBIN,TOTAL 0.7 mg/dL (0.2-1.0); CALCIUM 7.7 mg/dL (8.5-10.1); CO2 23 mmol/L (21-32); SGOT/AST 74 U/L (15-37); SGPT/ALT 31 U/L (12-78); TOT PROT 6.2 g/dl (6.4-8.2)
[2016-07-14 06:13] LABS: ALK PHOS 49 U/L (45-117)
[2016-07-14] MEDS ORDERED: POTASSIUM CHLORIDE TABS 20 MEQ TABLET.ER (FP) PO ONE (06:49)
[2016-07-14] MEDS ORDERED: CLOPIDOGREL BISULFATE 75 MG TABLET (FP) PO ONE (06:54)
[2016-07-14] MEDS ORDERED: INSULIN SLIDING SCALE (NOVOLOG) 1 VIAL SQ SCH (07:00)
[2016-07-14 08:19] LABS: PHOSPHOROUS 2.6 mg/dL (2.5-4.9)
[2016-07-14] MEDS ORDERED: PT OWN MED DRAWER 7, Y5N ONE (09:14)
--- NOTE | 2016-07-14 09:34 | DS ---
Physical Exam: SUBJECTIVE: Patient seen and examined. States he feels well, denies chest pain. OBJECTIVE: Transfer to [facility] for cardiac catheter. Troponins trending up Vital Signs Period Temp Pulse Resp BP Sys/Viveros Pulse Ox Last 24 Hr 97.8 F-99.3 F 55-77 18-23 99-150/63-90 97-100 PHYSICAL EXAM GENERAL: The patient is awake, alert, and fully oriented, in no acute distress. HEAD: Normal with no signs of trauma. EYES: PERRL, extraocular movements intact, sclera anicteric, conjunctiva clear. ENT: Ears normal, nares patent, oropharynx clear without exudates, moist mucous membranes. NECK: Trachea midline, full range of motion, supple. LUNGS: Anterior lung sounds clear, no accessory muscle use. HEART: Regular rate and rhythm, S1, S2 without murmur, rub or gallop. ABDOMEN: Soft, nontender, nondistended, normoactive bowel sounds, no guarding, no rebound, no hepatosplenomegaly, no masses. EXTREMITIES: 2+ pulses, warm, well-perfused, no edema. NEUROLOGICAL: Normal speech, gait not observed. PSYCH: Normal mood, normal affect. SKIN: Warm, dry, normal turgor, no rashes or lesions noted. LABS Laboratory Results - last 24 hr 07/13/16 07/13/16 07/13/16 11:18 13:35 13:35 WBC RBC Hgb Hct MCV MCHC RDW Plt Count MPV Neutrophils % Lymphocytes % Monocytes % Eosinophils % Basophils % PTT (Actin FS) Sodium Potassium Chloride Carbon Dioxide Anion Gap BUN Creatinine Creat Clearance w eGFR POC Glucometer 114 Random Glucose Hemoglobin A1c % Calcium Phosphorus Magnesium Total Bilirubin AST ALT Alkaline Phosphatase Creatine Kinase 267 Creatine Kinase Index 5.4 H CK-MB (CK-2) 14.459 H CK-MB (CK-2) Rel Index Cancelled Troponin I 2.32 H* Total Protein Albumin Triglycerides Cholesterol Total LDL Cholesterol HDL Cholesterol 07/13/16 07/13/16 07/13/16 13:56 17:03 19:25 WBC RBC Hgb Hct MCV MCHC RDW Plt Count MPV Neutrophils % Lymphocytes % Monocytes % Eosinophils % Basophils % PTT (Actin FS) Sodium Potassium Chloride Carbon Dioxide Anion Gap BUN Creatinine Creat Clearance w eGFR POC Glucometer 147 191 Random Glucose Hemoglobin A1c % Calcium Phosphorus Magnesium Total Bilirubin AST ALT Alkaline Phosphatase Creatine Kinase 480 H D Creatine Kinase Index 6.2 H* CK-MB (CK-2) 30.057 H CK-MB (CK-2) Rel Index Troponin I 8.23 H* D Total Protein Albumin Triglycerides Cholesterol Total LDL Cholesterol HDL Cholesterol 07/13/16 07/13/16 07/13/16 19:25 21:45 22:31 WBC RBC Hgb Hct MCV MCHC RDW Plt Count MPV Neutrophils % Lymphocytes % Monocytes % Eosinophils % Basophils % PTT (Actin FS) 44.8 H Sodium Potassium Chloride Carbon Dioxide Anion Gap BUN Creatinine Creat Clearance w eGFR POC Glucometer 124 Random Glucose Hemoglobin A1c % Calcium Phosphorus Magnesium Total Bilirubin AST ALT Alkaline Phosphatase Creatine Kinase Creatine Kinase Index CK-MB (CK-2) CK-MB (CK-2) Rel Index Cancelled Troponin I Total Protein Albumin Triglycerides Cholesterol Total LDL Cholesterol HDL Cholesterol 07/14/16 07/14/16 07/14/16 05:00 05:00 05:00 WBC 7.4 RBC 4.97 Hgb 14.5 Hct 41.9 MCV 84.3 MCHC 34.5 RDW 13.9 Plt Count 156 MPV 10.1 Neutrophils % 67.8 Lymphocytes % 19.6 Monocytes % 12.0 H Eosinophils % 0.4 Basophils % 0.2 PTT (Actin FS) Sodium 140 Potassium 3.6 Chloride 106 Carbon Dioxide 23 Anion Gap 11 BUN 16 Creatinine 0.6 L Creat Clearance w eGFR > 60 POC Glucometer Random Glucose 146 H Hemoglobin A1c % 7.0 H Calcium 7.7 L Phosphorus 2.6 Magnesium 2.0 Total Bilirubin 0.7 AST 74 H ALT 31 Alkaline Phosphatase 49 Creatine Kinase Creatine Kinase Index CK-MB (CK-2) CK-MB (CK-2) Rel Index Troponin I Total Protein 6.2 L Albumin 3.4 Triglycerides 163 H Cholesterol 140 Total LDL Cholesterol 99 HDL Cholesterol 29 L 07/14/16 07/14/16 07/14/16 05:00 05:00 05:00 WBC RBC Hgb Hct MCV MCHC RDW Plt Count MPV Neutrophils % Lymphocytes % Monocytes % Eosinophils % Basophils % PTT (Actin FS) 50.3 H Sodium Potassium Chloride Carbon Dioxide Anion Gap BUN Creatinine Creat Clearance w eGFR POC Glucometer Random Glucose Hemoglobin A1c % Calcium Phosphorus Magnesium Total Bilirubin AST ALT Alkaline Phosphatase Creatine Kinase 513 H Creatine Kinase Index CK-MB (CK-2) CK-MB (CK-2) Rel Index Cancelled Troponin I 12.91 H* D Total Protein Albumin Triglycerides Cholesterol Total LDL Cholesterol HDL Cholesterol 07/14/16 05:00 WBC RBC Hgb Hct MCV MCHC RDW Plt Count MPV Neutrophils % Lymphocytes % Monocytes % Eosinophils % Basophils % PTT (Actin FS) Sodium Potassium Chloride Carbon Dioxide Anion Gap BUN Creatinine Creat Clearance w eGFR POC Glucometer Random Glucose Hemoglobin A1c % Calcium Phosphorus Magnesium Cancelled Total Bilirubin AST ALT Alkaline Phosphatase Creatine Kinase Creatine Kinase Index CK-MB (CK-2) CK-MB (CK-2) Rel Index Troponin I Total Protein Albumin Triglycerides Cholesterol Total LDL Cholesterol HDL Cholesterol HOSPITAL COURSE: Date of Admission:07/13/16 Date of Discharge: 07/14/16 Patient is a 60 year old man with a past medical history of diabetes mellitus and hyperlipidemia. 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 Fluids: on heparin drip, electrolytes reviewed, NPO for cardiac cath Prophylaxis: DVT: Heparin drip Disposition: transfer to [facility] for cardiac technology lab teacher for early cardiac catheterization/coronary angiography. Accepting physician, Dr. Conrado Corrales. Minutes to complete discharge: 45 Discharge Summary Reason For Visit: CHEST PAIN Current Active Problems CAD (coronary artery disease) (Acute) Chest pain (Acute) Diabetes mellitus (Acute) HTN (hypertension) (Acute) Hypertriglyceridemia (Acute) NSTEMI (non-ST elevated myocardial infarction) (Acute) Condition: Guarded - Instructions Disposition: TRANSFER ACUTE CARE/OTHER HOSP - Home Medications Comprehensive Discharge Medication List: Ambulatory Orders Allopurinol [Zyloprim] 300 mg PO DAILY 12/25/11 Folic Acid - 1 mg PO DAILY 12/25/11 Metformin HCl [Glucophage] 1,000 mg PO BID 12/25/11 Canagliflozin [Invokana] 100 mg PO DAILY 07/13/16 Doxycycline Hyclate 100 mg PO BID 07/13/16 Ibuprofen [Motrin -] 600 mg PO PRN PRN 07/13/16 This patient is new to me today: Yes Date on this admission: 07/14/16 Emergency Visit: Yes ED Registration Date: 07/13/16 Care time: The patient presented to the Emergency Department on the above date and was hospitalized for further evaluation of their emergent condition. Critical Care patient: Yes Total Critical Care Time (in minutes): 45 Critical Care Statement: The care of this patient involved high complexity decision making to prevent further life threatening deterioration of the patient 's condition and/or to evalute & treat vital organ system(s) failure or risk of failure. - Discharge Referral Referred to [facility] No
[2016-07-14] MEDS ORDERED: PATIENT'S OWN MEDICATION (NON-FORMULARY) (Canagliflozin [Invokana] 100 MG) PO SCH ×2 (10:00)
[2016-07-14] MEDS ORDERED: ASPIRIN COATED 81 MG TABLET.EC PO SCH ×2 (10:00)
[2016-07-14] MEDS ORDERED: ALLOPURINOL 300 MG TABLET (FP) PO SCH (10:00)
[2016-07-14] MEDS ORDERED: FOLIC ACID 1 MG TABLET (FP) PO SCH (10:00)
[2016-07-14] MEDS ORDERED: CLOPIDOGREL BISULFATE 75 MG TABLET (FP) PO SCH (10:00)
[2016-07-14 10:21] VITALS: BP 119/68; PULSE 78; TEMP 99.1
--- NOTE | 2016-07-14 10:25 | PN ---
Progress Note, Physician Chief Complaint: Events noted Less chest pain this am Tolerating therapy History of Present Illness: Patient was seen and examined. Awake and alert. Chart was reviewed Denies chest pain, SOB or palpitations Discussed again with patient and regarding cardiac catheterization/ coronary angiogram/possible PCI Patient to be transferred to [facility] - Current Medication List Current Medications: Active Medications Acetaminophen (Tylenol -) 650 mg PO Q6H PRN PRN Reason: FEVER OR PAIN Allopurinol (Zyloprim -) 300 mg PO DAILY [facility] Last Admin: 07/14/16 09:31 Dose: 300 mg Alprazolam (Xanax -) 0.25 mg PO Q6H PRN PRN Reason: ANXIETY Aspirin (Ecotrin -) 81 mg PO DAILY [facility] Last Admin: 07/14/16 09:30 Dose: 81 mg Atorvastatin Calcium (Lipitor -) 80 mg PO HS RENÉE Clopidogrel Bisulfate (Plavix -) 75 mg PO DAILY [facility] Last Admin: 07/14/16 09:30 Dose: 75 mg Folic Acid (Folic Acid -) 1 mg PO DAILY [facility] Last Admin: 07/14/16 09:30 Dose: 1 mg Heparin Sodium (Porcine) (Heparin -) 1,000 unit IVPUSH PRN PRN PRN Reason: Heparin Heparin Sodium (Porcine) (Heparin -) 5,000 unit IVPUSH PRN PRN PRN Reason: Heparin Heparin Sodium (Porcine) 25, (000 unit/ Sodium Chloride) 500 mls @ 20 mls/hr IV TITR RENÉE; 1,000 UNIT/HR PRN Reason: Protocol Last Admin: 07/14/16 00:15 Dose: 22 mls/hr Nitroglycerin 25,000 mcg/ (Sodium Chloride) 250 mls @ 6 mls/hr IVPB TITR RENÉE PRN Reason: 10 MCG/MIN Last Titration: 07/14/16 06:30 Dose: 3 mcg/min Sodium Chloride (Normal Saline -) 1,000 mls @ 50 mls/hr IV ASDIR [facility] Stop: 07/15/16 00:49 Last Admin: 07/14/16 01:22 Dose: 50 mls/hr Insulin Aspart (Novolog Vial Sliding Scale -) 1 vial SQ ACHS RENÉE PRN Reason: Protocol Last Admin: 07/14/16 06:21 Dose: 2 units Morphine Sulfate (Morphine Injection -) 2 mg IVPUSH Q3H PRN PRN Reason: PAIN Non-Formulary Medication (Canagliflozin [Invokana]) 100 mg PO DAILY RENEÉ Ondansetron HCl (Zofran Injection) 4 mg IVPB Q6H PRN PRN Reason: NAUSEA - Objective Vital Signs: Vital Signs Temperature 99.1 F 07/14/16 10:00 Pulse Rate 78 07/14/16 10:00 Respiratory Rate 18 07/14/16 10:00 Blood Pressure 119/68 07/14/16 10:00 O2 Sat by Pulse Oximetry (%) 100 07/14/16 08:00 Neck: Yes: Supple Cardiovascular: Yes: Regular Rate and Rhythm, S1, S2 Respiratory: Yes: CTA Bilaterally Gastrointestinal: Yes: Normal Bowel Sounds, Soft. No: Tenderness Edema: No Additional Findings/Remarks: - Review of Systems Constitutional: denies: Chills, Fever Cardiovascular: reports: Chest Pain. denies: Palpitations, Shortness of Breath Respiratory: denies: Cough, Hemoptysis, Orthopnea, PND, SOB, SOB on Exertion Gastrointestinal: reports: Nausea. denies: Abdominal Pain, Constipation, Diarrhea, Melena, Rectal Bleeding, Vomiting Genitourinary: denies: Dysuria Neurological: denies: Dizziness, Headache, Seizure, Syncope Labs: CBC, BMP 07/14/16 05:00 07/14/16 05:00 INR, PTT INR 1.04 (0.82-1.09) 07/13/16 07:25 Laboratory Results - last 24 hr 07/13/16 07/13/16 07/13/16 11:18 13:35 13:35 WBC RBC Hgb Hct MCV MCHC RDW Plt Count MPV Neutrophils % Lymphocytes % Monocytes % Eosinophils % Basophils % PTT (Actin FS) Sodium Potassium Chloride Carbon Dioxide Anion Gap BUN Creatinine Creat Clearance w eGFR POC Glucometer 114 Random Glucose Hemoglobin A1c % Calcium Phosphorus Magnesium Total Bilirubin AST ALT Alkaline Phosphatase Creatine Kinase 267 Creatine Kinase Index 5.4 H CK-MB (CK-2) 14.459 H CK-MB (CK-2) Rel Index Cancelled Troponin I 2.32 H* Total Protein Albumin Triglycerides Cholesterol Total LDL Cholesterol HDL Cholesterol 07/13/16 07/13/16 07/13/16 13:56 17:03 19:25 WBC RBC Hgb Hct MCV MCHC RDW Plt Count MPV Neutrophils % Lymphocytes % Monocytes % Eosinophils % Basophils % PTT (Actin FS) Sodium Potassium Chloride Carbon Dioxide Anion Gap BUN Creatinine Creat Clearance w eGFR POC Glucometer 147 191 Random Glucose Hemoglobin A1c % Calcium Phosphorus Magnesium Total Bilirubin AST ALT Alkaline Phosphatase Creatine Kinase 480 H D Creatine Kinase Index 6.2 H* CK-MB (CK-2) 30.057 H CK-MB (CK-2) Rel Index Troponin I 8.23 H* D Total Protein Albumin Triglycerides Cholesterol Total LDL Cholesterol HDL Cholesterol 07/14/16 07/14/16 07/14/16 05:00 05:00 05:00 WBC 7.4 RBC 4.97 Hgb 14.5 Hct 41.9 MCV 84.3 MCHC 34.5 RDW 13.9 Plt Count 156 MPV 10.1 Neutrophils % 67.8 Lymphocytes % 19.6 Monocytes % 12.0 H Eosinophils % 0.4 Basophils % 0.2 PTT (Actin FS) Sodium 140 Potassium 3.6 Chloride 106 Carbon Dioxide 23 Anion Gap 11 BUN 16 Creatinine 0.6 L Creat Clearance w eGFR > 60 POC Glucometer Random Glucose 146 H Hemoglobin A1c % 7.0 H Calcium 7.7 L Phosphorus 2.6 Magnesium 2.0 Total Bilirubin 0.7 AST 74 H ALT 31 Alkaline Phosphatase 49 Creatine Kinase Creatine Kinase Index CK-MB (CK-2) CK-MB (CK-2) Rel Index Troponin I Total Protein 6.2 L Albumin 3.4 Triglycerides 163 H Cholesterol 140 Total LDL Cholesterol 99 HDL Cholesterol 29 L 07/14/16 07/14/16 07/14/16 05:00 05:00 05:00 WBC RBC Hgb Hct MCV MCHC RDW Plt Count MPV Neutrophils % Lymphocytes % Monocytes % Eosinophils % Basophils % PTT (Actin FS) 50.3 H Sodium Potassium Chloride Carbon Dioxide Anion Gap BUN Creatinine Creat Clearance w eGFR POC Glucometer Random Glucose Hemoglobin A1c % Calcium Phosphorus Magnesium Total Bilirubin AST ALT Alkaline Phosphatase Creatine Kinase 513 H Creatine Kinase Index CK-MB (CK-2) CK-MB (CK-2) Rel Index Cancelled Troponin I 12.91 H* D Total Protein Albumin Triglycerides Cholesterol Total LDL Cholesterol HDL Cholesterol Problem List - Problems (1) Chest pain Code(s): R07.9 - CHEST PAIN, UNSPECIFIED Qualifiers: Qualified Code(s): R07.9 - Chest pain, unspecified (2) CAD (coronary artery disease) Code(s): I25.10 - ATHSCL HEART DISEASE OF [place] CORONARY ARTERY W/O ANG PCTRS Qualifiers: Qualified Code(s): I25.110 - Atherosclerotic heart disease of [place] coronary artery with unstable angina pectoris (3) NSTEMI (non-ST elevated myocardial infarction) Code(s): I21.4 - NON-ST ELEVATION (NSTEMI) MYOCARDIAL INFARCTION (4) Hypertriglyceridemia Code(s): E78.1 - PURE HYPERGLYCERIDEMIA (5) Diabetes mellitus Code(s): E11.9 - TYPE 2 DIABETES MELLITUS WITHOUT COMPLICATIONS Qualifiers: Qualified Code(s): E11.9 - Type 2 diabetes mellitus without complications (6) HTN (hypertension) Code(s): I10 - ESSENTIAL (PRIMARY) HYPERTENSION Qualifiers: Qualified Code(s): I10 - Essential (primary) hypertension Assessment/Plan 1. CAD with elevation of troponin c/w NSTEMI - inferior-posterior PR 2. Type 2 diabetes mellitus 3. Hypertriglyceridemia 4. Hypertension PLAN: 1. Continue Heparin drip 2. Continue IV NTG and titrate 3. Morphine as needed for chest pain 4. Lipitor 80 mg given - continue Lipitor or Cresor to keep LDL<70 5. Plavix bolus was given and continue ASA and Plavix or alternative antiplatelet such as Brilinta 6. Eventually start beta can +/- ACEI or ARB in view of diabetes mellitus - BP permitting 7. Early cardiac catheterization/coronary angiography - spoke with Dr. Conrado Corrales of [facility] for transfer to [facility] Discussed with his by bedside Guarded Patient was seen in ICU Nathan Stevenson MD
--- NOTE | 2016-07-14 12:36 | EKG ---
Test Reason : Blood Pressure : / mmHG Vent. Rate : 073 BPM Atrial Rate : 073 BPM P-R Int : 162 ms QRS Dur : 124 ms QT Int : 378 ms P-R-T Axes : 040 -02 015 degrees QTc Int : 416 ms NORMAL SINUS RHYTHM RIGHT BUNDLE BRANCH BLOCK INFERIOR INFARCT (CITED ON OR BEFORE 13-JUL-2016) ABNORMAL ECG WHEN COMPARED WITH ECG OF 14-JUL-2016 00:44, NO SIGNIFICANT CHANGE WAS FOUND Confirmed by MIGUEL BOLTON, ADRIÁN ([id number]) on 07/14/2016 12:35:52 PM Referred By: MAYE RICO Confirmed By:ADRIÁN RIVERA MD
--- NOTE | 2016-07-14 12:36 | EKG ---
Test Reason : Blood Pressure : / mmHG Vent. Rate : 069 BPM Atrial Rate : 069 BPM P-R Int : 168 ms QRS Dur : 128 ms QT Int : 412 ms P-R-T Axes : 046 -09 004 degrees QTc Int : 441 ms NORMAL SINUS RHYTHM RIGHT BUNDLE BRANCH BLOCK INFERIOR INFARCT (CITED ON OR BEFORE 13-JUL-2016) ABNORMAL ECG WHEN COMPARED WITH ECG OF 13-JUL-2016 15:38, NO SIGNIFICANT CHANGE WAS FOUND Confirmed by MIGUEL BOLTON, ADRIÁN ([id number]) on 07/14/2016 12:36:32 PM Referred By: Confirmed By:ADRIÁN RIVERA MD
--- NOTE | 2016-07-14 14:46 | PN ---
Physical Exam: SUBJECTIVE: Patient seen and examined at bed side in ICu this morning. patient denies CP, SOB, diaphoresis, although catching his breath to finish sentences. saturating well. patient currently asymptomatic and reports being hungry. troponings trending up over night. Patient to be transferred to [facility] OBJECTIVE: Vital Signs Period Temp Pulse Resp BP Sys/Viveros Pulse Ox Last 24 Hr 97.8 F-99.3 F 60-78 18-23 99-126/63-77 97-100 GENERAL: The patient is awake, alert, and fully oriented, in no acute distress. HEAD: Normal with no signs of trauma. EYES: PERRL, extraocular movements intact, sclera anicteric, conjunctiva clear. No ptosis. ENT: Ears normal, nares patent, oropharynx clear without exudates, moist mucous membranes. NECK: Trachea midline, full range of motion, supple. LUNGS: Breath sounds equal, clear to auscultation bilaterally, no wheezes, no crackles, no accessory muscle use. HEART: Regular rate and rhythm, S1, S2 without murmur, rub or gallop. ABDOMEN: Soft, nontender, nondistended, normoactive bowel sounds, no guarding, no rebound, no hepatosplenomegaly, no masses. EXTREMITIES: 2+ pulses, warm, well-perfused, no edema. NEUROLOGICAL: Cranial nerves II through XII grossly intact. Normal speech, gait not observed. PSYCH: Normal mood, normal affect. SKIN: Warm, dry, normal turgor, no rashes or lesions noted Laboratory Results - last 24 hr 07/13/16 07/13/16 07/13/16 13:35 13:35 17:03 WBC RBC Hgb Hct MCV MCHC RDW Plt Count MPV Neutrophils % Lymphocytes % Monocytes % Eosinophils % Basophils % PTT (Actin FS) Sodium Potassium Chloride Carbon Dioxide Anion Gap BUN Creatinine Creat Clearance w eGFR POC Glucometer 191 Random Glucose Hemoglobin A1c % Calcium Phosphorus Magnesium Total Bilirubin AST ALT Alkaline Phosphatase Creatine Kinase 267 Creatine Kinase Index 5.4 H CK-MB (CK-2) 14.459 H CK-MB (CK-2) Rel Index Cancelled Troponin I 2.32 H* Total Protein Albumin Triglycerides Cholesterol Total LDL Cholesterol HDL Cholesterol 07/13/16 07/13/16 07/13/16 19:25 19:25 21:45 WBC RBC Hgb Hct MCV MCHC RDW Plt Count MPV Neutrophils % Lymphocytes % Monocytes % Eosinophils % Basophils % PTT (Actin FS) 44.8 H Sodium Potassium Chloride Carbon Dioxide Anion Gap BUN Creatinine Creat Clearance w eGFR POC Glucometer Random Glucose Hemoglobin A1c % Calcium Phosphorus Magnesium Total Bilirubin AST ALT Alkaline Phosphatase Creatine Kinase 480 H D Creatine Kinase Index 6.2 H* CK-MB (CK-2) 30.057 H CK-MB (CK-2) Rel Index Cancelled Troponin I 8.23 H* D Total Protein Albumin Triglycerides Cholesterol Total LDL Cholesterol HDL Cholesterol 07/13/16 07/14/16 07/14/16 22:31 05:00 05:00 WBC 7.4 RBC 4.97 Hgb 14.5 Hct 41.9 MCV 84.3 MCHC 34.5 RDW 13.9 Plt Count 156 MPV 10.1 Neutrophils % 67.8 Lymphocytes % 19.6 Monocytes % 12.0 H Eosinophils % 0.4 Basophils % 0.2 PTT (Actin FS) Sodium 140 Potassium 3.6 Chloride 106 Carbon Dioxide 23 Anion Gap 11 BUN 16 Creatinine 0.6 L Creat Clearance w eGFR > 60 POC Glucometer 124 Random Glucose 146 H Hemoglobin A1c % Calcium 7.7 L Phosphorus 2.6 Magnesium 2.0 Total Bilirubin 0.7 AST 74 H ALT 31 Alkaline Phosphatase 49 Creatine Kinase Creatine Kinase Index CK-MB (CK-2) CK-MB (CK-2) Rel Index Troponin I Total Protein 6.2 L Albumin 3.4 Triglycerides 163 H Cholesterol 140 Total LDL Cholesterol 99 HDL Cholesterol 29 L 07/14/16 07/14/16 07/14/16 05:00 05:00 05:00 WBC RBC Hgb Hct MCV MCHC RDW Plt Count MPV Neutrophils % Lymphocytes % Monocytes % Eosinophils % Basophils % PTT (Actin FS) 50.3 H Sodium Potassium Chloride Carbon Dioxide Anion Gap BUN Creatinine Creat Clearance w eGFR POC Glucometer Random Glucose Hemoglobin A1c % 7.0 H Calcium Phosphorus Magnesium Total Bilirubin AST ALT Alkaline Phosphatase Creatine Kinase 513 H Creatine Kinase Index CK-MB (CK-2) CK-MB (CK-2) Rel Index Troponin I 12.91 H* D Total Protein Albumin Triglycerides Cholesterol Total LDL Cholesterol HDL Cholesterol 07/14/16 07/14/16 07/14/16 05:00 05:00 06:15 WBC RBC Hgb Hct MCV MCHC RDW Plt Count MPV Neutrophils % Lymphocytes % Monocytes % Eosinophils % Basophils % PTT (Actin FS) Sodium Potassium Chloride Carbon Dioxide Anion Gap BUN Creatinine Creat Clearance w eGFR POC Glucometer 165.25142 Random Glucose Hemoglobin A1c % Calcium Phosphorus Magnesium Cancelled Total Bilirubin AST ALT Alkaline Phosphatase Creatine Kinase Creatine Kinase Index CK-MB (CK-2) CK-MB (CK-2) Rel Index Cancelled Troponin I Total Protein Albumin Triglycerides Cholesterol Total LDL Cholesterol HDL Cholesterol Laboratory Tests 07/13/16 07/13/16 07/13/16 13:35 19:25 21:45 PTT (Actin FS) 44.8 H BUN Creatinine Creatine Kinase 267 480 H D Creatine Kinase Index 5.4 H 6.2 H* CK-MB (CK-2) 14.459 H 30.057 H Troponin I 2.32 H* 8.23 H* D Triglycerides HDL Cholesterol 07/14/16 07/14/16 07/14/16 05:00 05:00 05:00 PTT (Actin FS) 50.3 H BUN 16 Creatinine 0.6 L Creatine Kinase 513 H Creatine Kinase Index CK-MB (CK-2) Troponin I 12.91 H* D Triglycerides 163 H HDL Cholesterol 29 L CXR: no acute pathology A/P Pt is a 60yr old man with PMHx including DM and HLD. Now in the ICU for management of ACS. Currently no CP, troponings trending up over night. Cardiac-elevation of troponin c/w NSTEMI - inferior-posterior OR -Seen by Dr. Stevenson, will be transfered to [facility] for cardiac cath. -Continue heparin drip/plavix/asa/statin -Continue Heparin drip -Continue IV NTG and titrate -Morphine as needed for chest pain -Serial troponin and EKG Pulm: -O2 support -Incentive spirometer ID: Pt endorses recent "flu" >48hrs ago, denies tamiflu, currently afebrile no leukocytosis, and no sign of infection. -Monitor off antibiotics for now Type 2 diabetes mellitus -ISS Eventually start beta can +/- ACEI or ARB in view of diabetes mellitus - BP permitting Hypertriglyceridemia: 163 H Lipitor 80 mg Hematology: -Hemoconcentrated, improved with gental hydration. Renal: -Replete electrolyte as needed Neuro -Pain management with morphine Endo: -BGM -Glycemic control Prophylactic -DVT prophylactic covered with heparin drip dispo: transfer to [facility] for cath. Visit type - Emergency Visit Emergency Visit: Yes ED Registration Date: 07/13/16 Care time: The patient presented to the Emergency Department on the above date and was hospitalized for further evaluation of their emergent condition. - New Patient This patient is new to me today: Yes Date on this admission: 07/13/16 - Critical Care Critical Care patient: Yes Total Critical Care Time (in minutes): 46 Critical Care Statement: The care of this patient involved high complexity decision making to prevent further life threatening deterioration of the patient 's condition and/or to evalute & treat vital organ system(s) failure or risk of failure.
--- NOTE | 2016-07-14 16:20 | PN ---
Teaching Attending Note Name of Resident: Thi Lewis ATTENDING PHYSICIAN STATEMENT I saw and evaluated the patient. I reviewed the resident's note and discussed the case with the resident. I agree with the resident's findings and plan as documented. SUBJECTIVE: Patient seen and examined in the ICU. Awake and alert. On IV NTG. Currently no CP. No SOB. reports that he does snore and may have risks for Sleep Apnea. Intake & Output 07/11/16 07/12/16 07/13/16 07/14/16 23:59 23:59 23:59 23:59 Intake Total 466 Output Total 200 Balance 266 Weight 170 lb 172 lb 4 oz Last Vital Signs Temp Pulse Resp BP Pulse Ox 99.1 F 78 18 119/68 100 07/14/16 10:00 07/14/16 10:00 07/14/16 10:00 07/14/16 10:00 07/14/16 08:00 Constitutional: Yes: Awake and alert Eyes: Yes: PERRL HENT: Yes: WNL Neck: Yes: WNL Cardiovascular: Yes: S1, S2, Other (see EKG) Respiratory: Yes: Clear Gastrointestinal: Yes: Normal Bowel Sounds, Soft. No: Tenderness ...Rectal Exam: Yes: Deferred Renal/: No: CVA Tenderness - Left, CVA Tenderness - Right Musculoskeletal: Yes: WNL Extremities: Yes: WNL Edema: No Peripheral Pulses WNL: (+2 bilateral pedal pulses) Integumentary: Yes: WNL Neurological: Yes: WNL, Alert Psychiatric: Yes: WNL Labs: Abnormal Lab Results 07/13/16 07/13/16 07/13/16 05:00 07:25 07:25 RBC 5.77 H Hgb 17.0 H Hct 49.7 H Monocytes % 13.7 H PTT (Actin FS) BUN 22 H D Random Glucose 199 H AST 45 H D Creatine Kinase Creatine Kinase Index CK-MB (CK-2) Troponin I Triglycerides 239 H HDL Cholesterol 26 L 07/13/16 07/13/16 07/13/16 13:35 19:25 21:45 RBC Hgb Hct Monocytes % PTT (Actin FS) 44.8 H BUN Random Glucose AST Creatine Kinase 480 H D Creatine Kinase Index 5.4 H 6.2 H* CK-MB (CK-2) 14.459 H 30.057 H Troponin I 2.32 H* 8.23 H* D Triglycerides HDL Cholesterol Assessment/Plan ACS Recent Flu / viral illness DM Possible Sleep Apnea PLAN: For transfer to [facility] for cardiac cath O2 as needed IV Heparin ASA Plavix Glycemic control Statin Dr Jacobs CCTime 35"
[2016-07-14] MEDS ORDERED: ATORVASTATIN CA 80 MG TABLET (FP) PO SCH (22:00)
--- NOTE | 2016-07-15 13:34 | EKG ---
Test Reason : Blood Pressure : / mmHG Vent. Rate : 075 BPM Atrial Rate : 075 BPM P-R Int : 164 ms QRS Dur : 128 ms QT Int : 392 ms P-R-T Axes : 043 039 026 degrees QTc Int : 437 ms NORMAL SINUS RHYTHM WITH SINUS ARRHYTHMIA RIGHT BUNDLE BRANCH BLOCK POSSIBLE INFERIOR INFARCT (CITED ON OR BEFORE 13-JUL-2016) ABNORMAL ECG WHEN COMPARED WITH ECG OF 13-JUL-2016 15:38, NO SIGNIFICANT CHANGE WAS FOUND Confirmed by ADRIÁN RIVERA MD ([id number]) on 07/15/2016 1:34:36 PM Referred By: Confirmed By:ADRIÁN RIVERA MD
== END 2016-07-14 10:48 | disposition short-term general hospital (02) | DRG 282 ==
LOC: FER 07:15 → J4W 10:25 → JICU 07-14 00:32
PROVIDERS: ADMIT Internal Medicine; ATTEND Nurse Practitioner Family
DX: I21.4 Non-ST elevation (NSTEMI) myocardial infarction (principal); E11.9 Type 2 diabetes mellitus without complications; D64.9 Anemia, unspecified; E78.5 Hyperlipidemia, unspecified; E78.1 Pure hyperglyceridemia; I10 Essential (primary) hypertension; I25.10 Atherosclerotic heart disease of native coronary artery without angina pectoris; F17.210 Nicotine dependence, cigarettes, uncomplicated
CPT/HCPCS: 36415; 71010-TC; 80053; 80061; 82550; 82553; 83036; 83721; 83735; 84100; 84484; 85025; 85610; 85730; 87254; 87804; 93005; 93010; 99285-25; J1644

== ENCOUNTER 2017-02-14 12:53 | Observation (INO) | payer OTHER ==
[2017-02-14 13:19] VITALS: BMI 23.3
[2017-02-14] MEDS ORDERED: ASPIRIN 81 MG CHEWABLE TABLETS PO ONE (14:32)
[2017-02-14] MEDS ORDERED: ASPIRIN 81 MG CHEWABLE TABLETS ONE (14:52)
--- NOTE | 2017-02-14 15:28 | PDOC ---
History of Present Illness - General Chief Complaint: Chest Pain Stated Complaint: CHEST PAIN Time Seen by Provider: 02/14/17 13:56 History Source: Patient - History of Present Illness Initial Comments: Patient is a 61 yo M with a PMH of DM, CAD (s/p ID and stent x3 in July) presented to the ED because of 2/10, non-radiating, sudden, pinching chest pain that started after waking up at 6:30 am. He says this chest pain was not the same pain as the ID chest pain he had in July. He took nitroglycerin and felt relief after 15 minutes. The pain did not come back after taking nitroglycerin. 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 Patient also reports fatigue that also started this morning. He denies headache, nausea, edema, SOB, and cough. 02/14/17 15:24 Past History - Past Medical History Allergies/Adverse Reactions: Allergies Allergy/AdvReac Type Severity Reaction Status Date / Time No Known Allergies Allergy Verified 02/14/17 13:10 Home Medications: Ambulatory Orders Allopurinol [Zyloprim] 200 mg PO DAILY 12/25/11 Folic Acid - 1 mg PO DAILY 12/25/11 Metformin HCl [Glucophage] 1,000 mg PO BID 12/25/11 Canagliflozin [Invokana] 100 mg PO DAILY 07/13/16 Doxycycline Hyclate 100 mg PO BID 07/13/16 Ibuprofen [Motrin -] 600 mg PO PRN PRN 07/13/16 Alpha Lipoic Acid 100 mg PO DAILY 02/14/17 Aspirin [ASA -] 81 mg PO DAILY 02/14/17 Metoprolol Tartrate 50 mg PO 02/14/17 Anemia: Yes Diabetes: Yes Kidney Stones: Yes - Surgical History Cardiac Surgery: (x3 stents) - Suicide/Smoking/Psychosocial Hx Smoking Status: No Smoking History: Former smoker Have you smoked in the past 12 months: Yes Number of Cigarettes Smoked Daily: 5 Information on smoking cessation initiated: Yes 'Breaking Loose' booklet given: 02/14/17 Hx Alcohol Use: No Drug/Substance Use Hx: No Substance Use Type: None Hx Substance Use Treatment: No Cardiac Specific PMH - Complaint Specific PMHX Myocardial Infarction: Yes ( july. 3 stents) Review of Systems - Review of Systems Able to Perform ROS?: Yes Constitutional: No: Chills, Fever, Loss of Appetite, Weakness HEENTM: No: Throat Pain Respiratory: No: Cough, Shortness of Breath, Wheezing Cardiac (ROS): Yes: Chest Pain. No: Edema, Lightheadedness, Palpitations, Chest Tightness ABD/GI: No: Abdominal Distended, Diarrhea, Nausea : No: Burning, Dysuria Musculoskeletal: Yes: Gout Neurological: No: Headache *Physical Exam - Vital Signs Last Vital Signs Temp Pulse Resp BP Pulse Ox 97.4 F L 78 16 106/71 100 02/14/17 13:10 02/14/17 17:30 02/14/17 17:30 02/14/17 17:30 02/14/17 17:30 - Physical Exam Comments: General: No Acute distress, patient appears comfortable Eyes: Eyes clear, anicteric Neck: No LAD, supple, no JVD Chest: RRR, S1, S2 wnl, no murmurs, gallops appreciated Lungs: CTA B/L, no rales rhonchi wheezing Abd: + BS, NT, ND, Ext: no edema, pulses 2+ DP, radial 02/14/17 15:32 02/14/17 15:35 02/14/17 18:17 ED Treatment Course - LABORATORY CBC & Chemistry Diagram: 02/14/17 15:15 02/14/17 15:15 - ADDITIONAL ORDERS Additional order review: Laboratory Results 02/14/17 02/14/17 15:15 15:15 PT with INR 11.90 H INR 1.05 Sodium 139 Potassium 4.1 Chloride 106 Carbon Dioxide 24 Anion Gap 9 BUN 21 H D Creatinine 0.8 D Creat Clearance w eGFR > 60 Random Glucose 97 D Calcium 8.2 L Magnesium 2.3 Total Bilirubin 0.5 D AST 6 L D ALT 19 D Alkaline Phosphatase 49 Creatine Kinase 77 Troponin I < 0.02 D Total Protein 6.3 L Albumin 3.7 02/14/17 15:15 RBC 4.49 MCV 87.2 MCHC 33.7 RDW 15.6 D MPV 10.4 Neutrophils % 59.3 Lymphocytes % 24.1 D Monocytes % 11.2 H Eosinophils % 4.6 H D Basophils % 0.8 D - RADIOLOGY Radiology Studies Ordered: Category Date Time Status CHEST PA & LAT [RAD] Stat Radiology 02/14/17 14:32 Taken - Medications Given in the ED: ED Medications Discontinued Medications Generic Name Dose Route Start Last Admin Trade Name Yolanda PRN Reason Stop Dose Admin Aspirin 162 mg 02/14/17 14:32 02/14/17 14:54 Asa - PO 02/14/17 14:33 162 mg ONCE ONE Administration Progress Note - Progress Note Progress Note: #Acute Chest Pain -history of ID (s/p 3 stents in july) -CBC, CMP, Trops, CXR -EKG with no acute infarcts -negative trops -ASA -CXR -cardiac monitoring -O2 Admit to Obs-tele Medical Decision Making - Medical Decision Making #Acute Chest Pain -improved before arrival -EKG unremarkable for acute infarcts -Trops negative -admitted to OBS-Tele -Dr. Linares consulted Discussed case with Dr. Linares. Agrees to admit to Obs-tele. Gave verbal report to hospitalist special forces weapons sergeant. 02/14/17 15:57 02/14/17 19:01 *DC/Admit/Observation/Transfer Diagnosis at time of Disposition: Chest pain Qualifiers: Chest pain type: unspecified Qualified Code(s): R07.9 - Chest pain, unspecified - Discharge Dispostion Condition at time of disposition: Fair Admit: Yes - Referrals
[2017-02-14 15:39] LABS: BASOPHIL 0.8 % (0-2.0); EOSINOPHIL 4.6 % (0-4.5); MCH 29.4 pg (25.7-33.7); MCHC 33.7 g/dl (32.0-35.9); MEAN CELL VOLUME 87.2 fl (80-96); MEAN PLT VOLUME 10.4 fl (7.5-11.1); NEUTROPHILS 59.3 % (42.8-82.8); PLATELET COUNT 198 K/MM3 (134-434); RDW 15.6 % (11.9-15.9); WHITE BLOOD COUNT 6.2 K/mm3 (4.0-10.0)
[2017-02-14 15:51] LABS: INR 1.05 (0.82-1.09); PROTHROMBIN TIME (PATIENT) 11.9 SEC (9.98-11.88)
[2017-02-14 15:57] LABS: ALBUMIN 3.7 g/dl (3.4-5.0); ANION GAP 9 (8-16); BILIRUBIN,TOTAL 0.5 mg/dL (0.2-1.0); CALCIUM 8.2 mg/dL (8.5-10.1); CO2 24 mmol/L (21-32); CREATININE 0.8 mg/dL (0.7-1.3); GLUCOSE,RANDOM 97 mg/dL (74-106); MAGNESIUM 2.3 mg/dL (1.8-2.4); SGOT/AST 6 U/L (15-37); SGPT/ALT 19 U/L (12-78); TOT PROT 6.3 g/dl (6.4-8.2)
[2017-02-14 16:00] LABS: ALK PHOS 49 U/L (45-117); CPK 77 IU/L (39-308); TROPONIN I < 0.02 ng/ml (0.00-0.05)
--- NOTE | 2017-02-14 16:05 | PDOC ---
Attending Attestation - Resident Resident Name: Josephine Kingston - ED Attending Attestation I have performed the following: I have examined & evaluated the patient, The case was reviewed & discussed with the resident, I agree w/resident's findings & plan, Exceptions are as noted - HPI HPI: 02/14/17 15:59 61 M with h/o DM, CAD/[place] s/p stents 2017, presenting to ER with L sided chest pain. Pt states that the pain began this morning and felt like a pinching sensation. It started at rest. He denies SOB/diaphoresis. Pt took one sublingual nitro, which alleviated the pain completely. The pain lasted a total of 15 minutes and has not recurred since. Pt spoke with his food service employee, who recommended pt come to ER for evaluation. He currently denies any symptoms. Denies CP/SOB. Denies leg swelling. Denies recent travel/immobilization. - Physicial Exam PE: 02/14/17 16:01 "GENERAL: Awake, alert, and fully oriented, in no acute distress HEAD: No signs of trauma EYES: PERRLA, EOMI, sclera anicteric, conjunctiva clear ENT: Auricles normal inspection, hearing grossly normal, nares patent, oropharynx clear without exudates. Moist mucosa NECK: Nontender, no stepoffs, Normal ROM, supple, no lymphadenopathy, JVD, or masses LUNGS: Breath sounds equal, clear to auscultation bilaterally. No wheezes, and no crackles HEART: Regular rate and rhythm, normal S1 and S2, no murmurs, rubs or gallops ABDOMEN: Soft, nontender, normoactive bowel sounds. No guarding, no rebound. No masses EXTREMITIES: Normal range of motion, no edema. No clubbing or cyanosis. No cords, erythema, or tenderness NEUROLOGICAL: Cranial nerves II through XII intact. 5/5 strength and sensation in all extremities, Normal speech, normal gait SKIN: Warm, Dry, normal turgor, no rashes or lesions noted. " - Medical Decision Making 02/14/17 16:02 61 M with h/o CAD/WA presenting with chest pain that lasted 15 minutes and was relieved with nitro. Although pain is atypical, pt has significant cardiac history. EKG with no acute changes. Pt with no PE risk factors. - Labs, trop x2 - CXR - Aspirin - cardiology consult - Pt will require admission for further evaluation of chest pain with possible transfer for cath 02/14/17 16:41 First troponin negative. Pt signed out to night team at 5PM. Disposition pending cardiology consult and admission to hospital vs transfer. Case discussed in detail with oncoming Emergency Physician including history, physical exam and ancillary studies. Oncoming Emergency Physician has assumed care for the patient and will complete the evaluation and treatment. Patient is aware of the plan. <Jose M Lujan - Last Filed: 02/14/17 16:41> - Medical Decision Making 02/14/17 16:48 Dr. Linares was paged and notified via phone service. <Linda Millard - Last Filed: 02/14/17 16:53> Heart Score/ECG Review - History History: Slightly suspicious - Electrocardiogram EKG: Non specific repolarization disturbance - Age Age: 45-65 - Risk Factors Risk Factors Heart Score: Yes Hx Diabetes Based on the list above the patient has:: >/=3 risk factors or Hx atherosclerotic disease - Troponin Troponin: </= normal limit - Score Heart Score - Total: 4 - ECG Impressions Comment:: 02/14/17 16:01 NSR, no RENE/STDs, T wave inversions anteriorly seen on prior EKG, RBBB, axis wnl <Jose M Lujan - Last Filed: 02/14/17 16:41>
--- NOTE | 2017-02-14 17:25 | HP ---
Admitting History and Physical - Admission Chief Complaint: chest pain History of Present Illness: HPI This is a 61 year old male with h/o DM, recent cath at [place] for CAD/[place] s/p stents 06/2016, presented today with Left sided chest pain. Pain began this morning around 6:30am with a "peculiar" knife like feeling to his sternum with some left sided radiation. He took a SL nitro and after 5 mins pain resolved. He was able to fall asleep which is rare for him, woke up around 10am and called his grade setter. He was then told to go to the ED. Currently, patient chest pain free, denies sob, palpitations, VASQUEZ, urinary abnormalities, lower ext swelling, cough. He is compliant with his medications. He is in his third month of cardiac rehab. Of note, a fourth stent was to be placed, however decided to medically manage at that time. MEDS Per PT : ASA Toprol xl 50mg Lipitor 20mg Allopurinol 200mg daily Brillinta 90mg bid DM meds as listed in collected home meds list History Source: Patient Limitations to Obtaining History: No Limitations - Past Medical History Cardiovascular: Yes: CAD, Hyperlipdemia, [place] Endocrine: Yes: Diabetes Mellitus - Past Surgical History Past Surgical History: Yes: Stent (x3) - Smoking History Smoking history: Former smoker Have you smoked in the past 12 months: No - Alcohol/Substance Use Hx Alcohol Use: No History of Substance Use: reports: None - Social History Usual Living Arrangement: Yes: With Spouse ADL: Independent 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 History of Recent Travel: No Home Medications - Allergies Allergies/Adverse Reactions: Allergies Allergy/AdvReac Type Severity Reaction Status Date / Time No Known Allergies Allergy Verified 02/14/17 13:10 - Home Medications Home Medications: Ambulatory Orders Allopurinol [Zyloprim] 300 mg PO DAILY 12/25/11 Folic Acid - 1 mg PO DAILY 12/25/11 Metformin HCl [Glucophage] 1,000 mg PO BID 12/25/11 Canagliflozin [Invokana] 100 mg PO DAILY 07/13/16 Doxycycline Hyclate 100 mg PO BID 07/13/16 Ibuprofen [Motrin -] 600 mg PO PRN PRN 07/13/16 Family Disease History - Family Disease History Family Disease History: Diabetes: Father (Prostate CA), Heart Disease: Mother ( [place]), CA: Father Review of Systems - Review of Systems Constitutional: reports: No Symptoms Eyes: reports: No Symptoms HENT: reports: No Symptoms Neck: reports: No Symptoms Cardiovascular: reports: Chest Pain Respiratory: reports: No Symptoms Gastrointestinal: reports: No Symptoms Genitourinary: reports: No Symptoms Musculoskeletal: reports: No Symptoms Integumentary: reports: No Symptoms Endocrine: reports: No Symptoms Hematology/Lymphatic: reports: No Symptoms Psychiatric: reports: No Symptoms Physical Examination Vital Signs: Vital Signs Temperature 97.4 F L 02/14/17 13:10 Pulse Rate 73 02/14/17 15:29 Respiratory Rate 14 02/14/17 15:29 Blood Pressure 96/65 02/14/17 15:29 O2 Sat by Pulse Oximetry (%) 100 02/14/17 15:29 Constitutional: Yes: Calm Eyes: Yes: Conjunctiva Clear HENT: Yes: Atraumatic Neck: Yes: Supple Cardiovascular: Yes: Regular Rate and Rhythm, S1, S2 Respiratory: Yes: Regular, CTA Bilaterally Gastrointestinal: Yes: Normal Bowel Sounds, Soft Renal/: Yes: WNL Musculoskeletal: Yes: WNL Extremities: Yes: WNL Edema: No Integumentary: Yes: WNL Neurological: Yes: Alert, Oriented, Cran Nerves II-XII Intact Psychiatric: Yes: Alert, Oriented Labs: CBC, BMP 02/14/17 15:15 02/14/17 15:15 Imaging - Results EKG: Other (Per ER read: NSR, no RENE/STDs, T wave inversions anteriorly seen on prior EKG, RBBB,) Assessment/Plan Assessment: 61 year old male admitted with chest pain Plan: 1. Chest pain - R/o ACS, initial trop negative - Serial trops - Obtain cxray - Given ASA, to continue 81mg daily - Brilinta 90mg BID - Metoprolol xl 50mg daily - Lipitor 20mg HS - Tele monitoring - EKG in AM - Cardiology consult ? transfer 2. DM - ISS, BGM ACHS - Hold PO meds 3. Gout - Allopurinol 4. PPX - DVT: Heparin TID Visit type - Emergency Visit Emergency Visit: Yes Care time: The patient presented to the Emergency Department on the above date and was hospitalized for further evaluation of their emergent condition. - New Patient This patient is new to me today: Yes Date on this admission: 02/14/17 - Critical Care Critical Care patient: No
[2017-02-14] MEDS ORDERED: HEPARIN NA (PORCINE) 5,000 UNITS/ML 1ML VIAL SQ SCH (22:00)
[2017-02-14] MEDS ORDERED: TICAGRELOR 90 MG TABLET PO SCH (22:00)
[2017-02-14] MEDS ORDERED: ATORVASTATIN CA 20 MG TABLET (FP) PO SCH (22:00)
[2017-02-14 22:41] LABS: CPK 73 IU/L (39-308); TROPONIN I < 0.02 ng/ml (0.00-0.05)
[2017-02-14] MEDS: INSULIN SLIDING SCALE (NOVOLOG) 1 VIAL SQ SCH (22:45)
--- NOTE | 2017-02-14 22:53 | CON.CARD ---
Consult Consult Specialty:: Cardiology Referred by:: Hospitalist Medicine Reason for Consultation:: Chest pain - History of Present Illness Chief Complaint: Chest pain History of Present Illness: 61 year old male with h/o DM, CAD/[place] s/p stents RCA 06/2016, presented today with atypical left-sided chest pain. Pain began this morning around 6:30am with a "peculiar" knife like feeling to his sternum with some left-sided radiation. He took a SL nitro and after 5 mins pain resolved. Currently, patient chest pain free, denies sob, palpitations, near or true syncope, palpitations, orthopnea, PND or LE edema. He is compliant with his medications. He is in his third month of cardiac rehab. 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 History of Recent Travel: No Home Medications - Allergies Allergies/Adverse Reactions: Allergies Allergy/AdvReac Type Severity Reaction Status Date / Time No Known Allergies Allergy Verified 02/14/17 13:10 - Home Medications Home Medications: Ambulatory Orders Allopurinol [Zyloprim] 200 mg PO DAILY 12/25/11 Folic Acid - 1 mg PO DAILY 12/25/11 Metformin HCl [Glucophage] 1,000 mg PO BID 12/25/11 Canagliflozin [Invokana] 100 mg PO DAILY 07/13/16 Doxycycline Hyclate 100 mg PO BID 07/13/16 Ibuprofen [Motrin -] 600 mg PO PRN PRN 07/13/16 Alpha Lipoic Acid 100 mg PO DAILY 02/14/17 Aspirin [ASA -] 81 mg PO DAILY 02/14/17 Metoprolol Tartrate 50 mg PO 02/14/17 Family Disease History - Family Disease History Family Disease History: Diabetes: Father (Prostate [place]), Heart Disease: Mother ( [place]), CA: Father Review of Systems - Review of Systems Cardiovascular: reports: Chest Pain Vital Signs: Vital Signs Temperature 97.4 F L 02/14/17 13:10 Pulse Rate 78 02/14/17 17:30 Respiratory Rate 16 02/14/17 17:30 Blood Pressure 106/71 02/14/17 17:30 O2 Sat by Pulse Oximetry (%) 100 02/14/17 17:30 Constitutional: Yes: No Distress, Calm Neck: Yes: Supple Respiratory: Yes: Regular, CTA Bilaterally Gastrointestinal: Yes: Normal Bowel Sounds, Soft Cardiovascular: Yes: Regular Rate and Rhythm JVD: No Carotid Bruit: No Heart Sounds: Yes: S1, S2 Edema: No - Other Data Labs, Other Data: INR, PTT INR 1.05 (0.82-1.09) 02/14/17 15:15 Troponin, BNP 02/14/17 21:47 Troponin I < 0.02 Troponin, BNP 02/14/17 21:47 Troponin I < 0.02 NSR @ 65 RBBB Imaging - Results Chest X-ray: Report Reviewed (NAD) Problem List - Problems (1) CAD (coronary artery disease) Code(s): I25.10 - ATHSCL HEART DISEASE OF [place] CORONARY ARTERY W/O ANG PCTRS Qualifiers: Coronary Disease-Associated Artery/Lesion type: [place] artery [place] vs. transplanted heart: [place] heart Associated angina: with unstable angina Qualified Code(s): I25.110 - Atherosclerotic heart disease of [place] coronary artery with unstable angina pectoris; I25.110 - Atherosclerotic heart disease of [place] coronary artery with unstable angina pectoris; I25.110 - Atherosclerotic heart disease of [place] coronary artery with unstable angina pectoris; I25.110 - Atherosclerotic heart disease of [place] coronary artery with unstable angina pectoris (2) Diabetes mellitus Code(s): E11.9 - TYPE 2 DIABETES MELLITUS WITHOUT COMPLICATIONS Qualifiers: Diabetes mellitus type: type 2 Diabetes mellitus complication status: without complication Diabetes mellitus custodial insulin use: without emt intermediate use Qualified Code(s): E11.9 - Type 2 diabetes mellitus without complications; E11.9 - Type 2 diabetes mellitus without complications; E11.9 - Type 2 diabetes mellitus without complications; E11.9 - Type 2 diabetes mellitus without complications (3) HTN (hypertension) Code(s): I10 - ESSENTIAL (PRIMARY) HYPERTENSION Qualifiers: Hypertension type: essential hypertension Qualified Code(s): I10 - Essential (primary) hypertension; I10 - Essential (primary) hypertension; I10 - Essential (primary) hypertension (4) Hyperlipidemia Code(s): E78.5 - HYPERLIPIDEMIA, UNSPECIFIED Qualifiers: Hyperlipidemia type: mixed hyperlipidemia Qualified Code(s): E78.2 - Mixed hyperlipidemia; E78.2 - Mixed hyperlipidemia; E78.2 - Mixed hyperlipidemia (5) H/O myocardial infarction, greater than 8 weeks Code(s): I25.2 - OLD MYOCARDIAL INFARCTION (6) S/P right coronary artery (RCA) stent placement Code(s): Z95.5 - PRESENCE OF CORONARY ANGIOPLASTY IMPLANT AND GRAFT (7) Atypical chest pain Code(s): R07.89 - OTHER CHEST PAIN Assessment/Plan 1. Atypical chest pain syndrome 2. CAD s/p [place], PCI (stent) of RCA, angina pectoris 3. Type 2 DM 4. Hyperlipipdemia 5. HTN/HCVD P:1. Ruled out for [place] 2. Continue ASA 81 qd, Brilinta 90 bid, Toprol XL 50 qd, Lipitor 20 qd 3. Patient may be d/akua in AM with f/u with Dr. Stevenson 4. Thank you for consultative opportunity
[2017-02-15 05:51] VITALS: BP 118/67
[2017-02-15] MEDS: INSULIN SLIDING SCALE (NOVOLOG) 1 VIAL SQ SCH (06:11)
[2017-02-15 06:17] VITALS: PULSE 70; TEMP 98.2
[2017-02-15 06:27] LABS: BASOPHIL 0.8 % (0-2.0); EOSINOPHIL 4.6 % (0-4.5); MCH 29.2 pg (25.7-33.7); MCHC 33.6 g/dl (32.0-35.9); MEAN CELL VOLUME 86.9 fl (80-96); MEAN PLT VOLUME 10.4 fl (7.5-11.1); NEUTROPHILS 58.5 % (42.8-82.8); PLATELET COUNT 200 K/MM3 (134-434); RDW 15.3 % (11.9-15.9); WHITE BLOOD COUNT 5.6 K/mm3 (4.0-10.0)
[2017-02-15 07:05] LABS: CPK 67 IU/L (39-308)
[2017-02-15 07:11] LABS: THYROID STIMULATING HORMONE 1.51 uIU/ml (0.358-3.74); TROPONIN I < 0.02 ng/ml (0.00-0.05)
[2017-02-15 07:16] LABS: CHOLESTEROL 79 mg/dL (50-200)
[2017-02-15 07:19] LABS: ALBUMIN 3.7 g/dl (3.4-5.0); ANION GAP 9 (8-16); CALCIUM 8.4 mg/dL (8.5-10.1); CO2 26 mmol/L (21-32); GLUCOSE,RANDOM 101 mg/dL (74-106)
[2017-02-15 07:22] LABS: ALK PHOS 43 U/L (45-117); BILIRUBIN,TOTAL 0.6 mg/dL (0.2-1.0); CREATININE 0.6 mg/dL (0.7-1.3); SGOT/AST 6 U/L (15-37); SGPT/ALT 18 U/L (12-78); TOT PROT 6.4 g/dl (6.4-8.2)
--- NOTE | 2017-02-15 07:38 | DS ---
Physical Exam: SUBJECTIVE: Patient seen and examined OBJECTIVE: Vital Signs Period Temp Pulse Resp BP Sys/Viveros Pulse Ox Last 24 Hr 97.8 F-98.8 F 65-70 14-18 105-118/64-67 100 PHYSICAL EXAM GENERAL: The patient is awake, alert, and fully oriented, in no acute distress. HEAD: Normal with no signs of trauma. EYES: PERRL, extraocular movements intact, sclera anicteric, conjunctiva clear. ENT: Ears normal, nares patent, oropharynx clear without exudates, moist mucous membranes. NECK: Trachea midline, full range of motion, supple. LUNGS: Breath sounds equal, clear to auscultation bilaterally, no wheezes, no crackles, no accessory muscle use. HEART: Regular rate and rhythm, S1, S2 without murmur, rub or gallop. ABDOMEN: Soft, nontender, nondistended, normoactive bowel sounds, no guarding, no rebound, no hepatosplenomegaly, no masses. EXTREMITIES: 2+ pulses, warm, well-perfused, no edema. NEUROLOGICAL: Cranial nerves II through XII grossly intact. Normal speech, gait not observed. PSYCH: Normal mood, normal affect. SKIN: Warm, dry, normal turgor, no rashes or lesions noted. LABS Laboratory Results - last 24 hr 02/14/17 02/14/17 02/15/17 21:47 22:38 05:05 WBC 5.6 RBC 4.66 Hgb 13.6 Hct 40.5 MCV 86.9 MCH 29.2 MCHC 33.6 RDW 15.3 Plt Count 200 MPV 10.4 Neutrophils % 58.5 Lymphocytes % 24.6 Monocytes % 11.5 H Eosinophils % 4.6 H Basophils % 0.8 Sodium Potassium Chloride Carbon Dioxide Anion Gap BUN Creatinine Creat Clearance w eGFR POC Glucometer [phone] Random Glucose Calcium Total Bilirubin AST ALT Alkaline Phosphatase Creatine Kinase 73 Troponin I < 0.02 Total Protein Albumin Triglycerides Cholesterol Total LDL Cholesterol HDL Cholesterol TSH 02/15/17 02/15/17 02/15/17 05:05 05:05 05:05 WBC RBC Hgb Hct MCV MCH MCHC RDW Plt Count MPV Neutrophils % Lymphocytes % Monocytes % Eosinophils % Basophils % Sodium 140 Potassium 3.9 Chloride 105 Carbon Dioxide 26 Anion Gap 9 BUN 20 H Creatinine 0.6 L D Creat Clearance w eGFR > 60 POC Glucometer Random Glucose 101 Calcium 8.4 L Total Bilirubin 0.6 AST 6 L ALT 18 Alkaline Phosphatase 43 L Creatine Kinase 67 Troponin I < 0.02 Total Protein 6.4 Albumin 3.7 Triglycerides 113 D Cholesterol 79 D Total LDL Cholesterol 46 D HDL Cholesterol 24 L TSH 1.51 HOSPITAL COURSE: Date of Admission:02/14/17 Date of Discharge: 02/15/17 Minutes to complete discharge: 37 Discharge Summary Reason For Visit: CHEST PAIN Current Active Problems Atypical chest pain (Acute) Chest pain (Acute) H/O myocardial infarction, greater than 8 weeks (Acute) Hyperlipidemia (Acute) S/P right coronary artery (RCA) stent placement (Acute) Hospital Course: Initial Hospital Course: Briefly, this 61 year old male with h/o DM, recent cath at [place] for CAD/[place] s /p stents 06/2016, presented with Left sided chest pain. Pain began in android ios developer with a "peculiar" knife like feeling to his sternum with some left sided radiation. He took a SL nitro and after 5 mins pain resolved. He was able to fall asleep which is rare for him, woke up around 10am and called his rope tow operator and told to go the ED. He is compliant with his medications. He is in his third month of cardiac rehab. Subsequent Hospital Course/Progress Note/Discharge Summary by plan: Plan: 1. Atypical chest pain - R/o [place] serial trops negative - EKG no sign of ischemic - Tele NSR - Continue ASA 81 qd, Brilinta 90 bid, Metoprolol 50 day, Lipitor 20 HS 2. CAD s/p [place], PCI (stent) of RCA, angina pectoris - Medical mgt as above - Office follow up with Dr. Stevenson 3. Type 2 DM - Resume home po anti diabetics 4. Hyperlipipdemia - Lipitor 5. HTN/HCVD - BB Dispo: - Home with pcp and cardiology follow up - PT aware and agrees to above plan Condition: Stable - Instructions Diet, Activity, Other Instructions: Please return to the ED for any new, persistent, or worsening symptoms. Follow up with your PCP in 1 week Resume home medications as directed Follow up with Professional Nurse Dr. Stevenson next week, call to make an appt Referrals: Nathan Stevenson MD [Staff Physician] - Disposition: HOME - Home Medications Comprehensive Discharge Medication List: Ambulatory Orders Allopurinol [Zyloprim -] 200 mg PO DAILY 12/25/11 Folic Acid - 1 mg PO DAILY 12/25/11 Metformin HCl [Glucophage -] 1,000 mg PO BID 12/25/11 Canagliflozin [Invokana] 100 mg PO DAILY 07/13/16 Doxycycline Hyclate 100 mg PO BID 07/13/16 Alpha Lipoic Acid 100 mg PO DAILY 02/14/17 Aspirin [ASA -] 81 mg PO DAILY 02/14/17 Metoprolol Tartrate 50 mg PO DAILY #30 tab 02/15/17 Problem List - Problems (1) Atypical chest pain Code(s): R07.89 - OTHER CHEST PAIN (2) H/O myocardial infarction, greater than 8 weeks Code(s): I25.2 - OLD MYOCARDIAL INFARCTION (3) Hyperlipidemia Code(s): E78.5 - HYPERLIPIDEMIA, UNSPECIFIED Qualifiers: Hyperlipidemia type: mixed hyperlipidemia Qualified Code(s): E78.2 - Mixed hyperlipidemia; E78.2 - Mixed hyperlipidemia; E78.2 - Mixed hyperlipidemia (4) S/P right coronary artery (RCA) stent placement Code(s): Z95.5 - PRESENCE OF CORONARY ANGIOPLASTY IMPLANT AND GRAFT (5) CAD (coronary artery disease) Code(s): I25.10 - ATHSCL HEART DISEASE OF [place] CORONARY ARTERY W/O ANG PCTRS Qualifiers: Coronary Disease-Associated Artery/Lesion type: [place] artery [place] vs. transplanted heart: [place] heart Associated angina: with unstable angina Qualified Code(s): I25.110 - Atherosclerotic heart disease of [place] coronary artery with unstable angina pectoris; I25.110 - Atherosclerotic heart disease of [place] coronary artery with unstable angina pectoris; I25.110 - Atherosclerotic heart disease of [place] coronary artery with unstable angina pectoris; I25.110 - Atherosclerotic heart disease of [place] coronary artery with unstable angina pectoris (6) Diabetes mellitus Code(s): E11.9 - TYPE 2 DIABETES MELLITUS WITHOUT COMPLICATIONS Qualifiers: Diabetes mellitus type: type 2 Diabetes mellitus complication status: without complication Diabetes mellitus manager terminal insulin use: without detention use Qualified Code(s): E11.9 - Type 2 diabetes mellitus without complications; E11.9 - Type 2 diabetes mellitus without complications; E11.9 - Type 2 diabetes mellitus without complications; E11.9 - Type 2 diabetes mellitus without complications (7) HTN (hypertension) Code(s): I10 - ESSENTIAL (PRIMARY) HYPERTENSION Qualifiers: Hypertension type: essential hypertension Qualified Code(s): I10 - Essential (primary) hypertension; I10 - Essential (primary) hypertension; I10 - Essential (primary) hypertension (8) Hypertriglyceridemia Code(s): E78.1 - PURE HYPERGLYCERIDEMIA (9) NSTEMI (non-ST elevated myocardial infarction) Code(s): I21.4 - NON-ST ELEVATION (NSTEMI) MYOCARDIAL INFARCTION This patient is new to me today: No Emergency Visit: Yes ED Registration Date: 02/14/17 Care time: The patient presented to the Emergency Department on the above date and was hospitalized for further evaluation of their emergent condition. Critical Care patient: No - Discharge Referral Referred to [facility] Med P.C.: No
--- NOTE | 2017-02-15 09:05 | EKG ---
Test Reason : Blood Pressure : / mmHG Vent. Rate : 073 BPM Atrial Rate : 073 BPM P-R Int : 170 ms QRS Dur : 122 ms QT Int : 406 ms P-R-T Axes : 037 033 028 degrees QTc Int : 447 ms NORMAL SINUS RHYTHM RIGHT BUNDLE BRANCH BLOCK POSSIBLE INFERIOR INFARCT (CITED ON OR BEFORE 13-JUL-2016) ABNORMAL ECG WHEN COMPARED WITH ECG OF 14-JUL-2016 08:12, QUESTIONABLE CHANGE IN INITIAL FORCES OF INFERIOR LEADS Confirmed by DENISE GUILLEN MD ([id number]) on 02/15/2017 9:04:37 AM Referred By: Confirmed By:DENISE GUILLEN MD
[2017-02-15] MEDS ORDERED: ALLOPURINOL 100 MG TABLET (FP) PO SCH (10:00)
[2017-02-15] MEDS ORDERED: METOPROLOL SUCCINATE 50 MG TAB.SR.24H (FP) PO SCH (10:00)
[2017-02-15] MEDS ORDERED: ASPIRIN COATED 81 MG TABLET.EC PO SCH (10:00)
[2017-02-15] MEDS ORDERED: METOPROLOL TARTRATE 50 MG TABLET (FP) PO SCH (10:00)
--- NOTE | 2017-02-16 14:51 | EKG ---
Test Reason : Blood Pressure : / mmHG Vent. Rate : 065 BPM Atrial Rate : 065 BPM P-R Int : 164 ms QRS Dur : 126 ms QT Int : 408 ms P-R-T Axes : 030 049 035 degrees QTc Int : 424 ms NORMAL SINUS RHYTHM RIGHT BUNDLE BRANCH BLOCK ABNORMAL ECG WHEN COMPARED WITH ECG OF 14-JUL-2016 08:12, NO SIGNIFICANT CHANGE WAS FOUND Confirmed by ADRIÁN RIVERA MD ([id number]) on 02/16/2017 2:51:25 PM Referred By: Confirmed By:ADRIÁN RIVERA MD
== END 2017-02-15 09:09 | disposition home or self-care (01) ==
LOC: JER 12:53 → JERBED 17:45 → JICU 21:06
PROVIDERS: ADMIT Hospitalist; ATTEND Nurse Practitioner Acute Care
DX: R07.89 Other chest pain (principal); I10 Essential (primary) hypertension; I25.10 Atherosclerotic heart disease of native coronary artery without angina pectoris; I25.2 Old myocardial infarction; E11.9 Type 2 diabetes mellitus without complications; E78.2 Mixed hyperlipidemia; D64.9 Anemia, unspecified; M10.9 Gout, unspecified; Z95.5 Presence of coronary angioplasty implant and graft; Z79.82 Long term (current) use of aspirin; Z79.84 Long term (current) use of oral hypoglycemic drugs; Z87.891 Personal history of nicotine dependence
CPT/HCPCS: 36415; 71020-TC; 80053; 80061; 82550; 83721; 83735; 84443; 84484; 85025; 85610; 93005; 93010; 99283-25; G0378

== ENCOUNTER 2018-02-10 09:17 | Day surgery (SDC) | payer OTHER ==
[2018-02-09 14:28] VITALS: BMI 25.5
[2018-02-10 10:52] VITALS: TEMP 97.5
[2018-02-10 12:14] VITALS: BP 115/61; PULSE 67
--- NOTE | 2018-02-11 10:24 | PATH ---
Surgical Pathology Report Patient Name: DAVID MCDUFF[facility]. Rec. #: [id number] /Age/Gender: 1955 (Age: 62) / M Account: [id number] Location: ASU-ENDOSCOPY Taken: 02/10/2018 Received: 02/10/2018 Reported: 02/11/2018 Physicians: Michael Méndez M.D. Specimen(s) Received A: RECTAL POLYPS B: BX PROXIMAL TRANSVERSE COLON POLYPS C: BX HEPATIC FLEXURE POLYPS D: BX CECUM POLYPS E: BX RIGHT COLON POLYPS F: BX DISTAL TRANSVERSE COLON POLYPS Clinical History She's been received in Adenoma surveillance Postoperative diagnosis: Colon polyps Final Diagnosis A. RECTAL POLYPS, POLYPECTOMY: TUBULAR ADENOMA, FRAGMENTS. B. PROXIMAL TRANSVERSE COLON POLYPS, POLYPECTOMY: TUBULAR ADENOMA, FRAGMENTS. C. HEPATIC FLEXURE POLYPS, POLYPECTOMY: TUBULAR ADENOMA, FRAGMENTS. D. CECUM POLYPS, POLYPECTOMY: TUBULAR ADENOMA, FRAGMENTS. E. RIGHT COLON POLYPS, POLYPECTOMY: TUBULAR ADENOMA, FRAGMENTS. F. DISTAL TRANSVERSE COLON POLYPS, POLYPECTOMY: TUBULAR ADENOMA. Electronically Signed Harley Redman M.D. Gross Description A. Received in formalin, labeled "rectal polyps" are 6 humph[place], irregular portions of soft tissue ranging from 0.1-0.4 cm. in greatest dimension. The specimens are submitted in toto in one cassette. B. Received in formalin, labeled "polyps proximal transverse colon" are 3 humphrey, irregular portions of soft tissue ranging from 0.2-0.3 cm. in greatest dimension. The specimens are submitted in toto in one cassette. C. Received in formalin, labeled "polyps hepatic flexure" are 6 humph[place], irregular portions of soft tissue ranging from 0.1-0.4 cm. in greatest dimension. The specimens are submitted in toto in one cassette. D. Received in formalin labeled "polyps cecum," is a 1.1 x 0.8 x 0.1 cm aggregate of humphrey soft tissue fragments. The formalin is filtered and the specimen is entirely submitted in one cassette. E. Received in formalin, labeled "polyps right colon" are 2 humphrey, irregular portions of soft tissue measuring 0.3 and 0.7 cm. in greatest dimension. The specimens are submitted in toto in one cassette. F. Received in formalin, labeled "polyps distal transverse colon" is a humphrey, irregular portion of soft tissue measuring 0.5 cm. in greatest dimension. The specimen is submitted in toto in one cassette. 02/10/2018 [facility]02/10/2018
== END 2018-02-10 12:14 | disposition home or self-care (01) ==
LOC: JASU-ENDO 09:17
PROVIDERS: ATTEND Internal Medicine Gastroenterology
PROC: 0DBL8ZX Excision of Transverse Colon, Via Natural or Artificial Opening Endoscopic, Diagnostic (ICD-10-PCS; 2018-02-10)
PROC: 0DBP8ZX Excision of Rectum, Via Natural or Artificial Opening Endoscopic, Diagnostic (ICD-10-PCS; 2018-02-10)
PROC: 0DBM8ZX Excision of Descending Colon, Via Natural or Artificial Opening Endoscopic, Diagnostic (ICD-10-PCS; 2018-02-10)
PROC: 0DBH8ZX Excision of Cecum, Via Natural or Artificial Opening Endoscopic, Diagnostic (ICD-10-PCS; 2018-02-10)
PROC: 0DBK8ZX Excision of Ascending Colon, Via Natural or Artificial Opening Endoscopic, Diagnostic (ICD-10-PCS; principal; 2018-02-10 10:00)
DX: Z12.11 Encounter for screening for malignant neoplasm of colon (principal); Z86.010 Personal history of colon polyps; K62.1 Rectal polyp; D12.2 Benign neoplasm of ascending colon; D12.0 Benign neoplasm of cecum; D12.3 Benign neoplasm of transverse colon; K57.30 Diverticulosis of large intestine without perforation or abscess without bleeding; I10 Essential (primary) hypertension; E11.9 Type 2 diabetes mellitus without complications; Z79.84 Long term (current) use of oral hypoglycemic drugs
CPT/HCPCS: 88305-TC

== ENCOUNTER 2019-06-24 09:25 | Day surgery (SDC) | payer OTHER ==
[2019-06-24 10:05] VITALS: BMI 22.8
[2019-06-24 11:26] VITALS: TEMP 98.7
[2019-06-24 11:51] VITALS: BP 93/67; PULSE 73
--- NOTE | 2019-06-27 16:41 | PATH ---
Surgical Pathology Report Patient Name: DAVID MCDUFF[facility]. Rec. #: [id number] /Age/Gender: 1955 (Age: 63) / M Account: [id number] Location: [facility]-ENDOSCOPY Taken: 06/24/2019 Received: 06/24/2019 Reported: 06/27/2019 Physicians: Michael Méndez M.D. Specimen(s) Received A: RIGHT COLON POLYP B: DESCENDING COLON POLYP C: SIGMOID COLON, POLYP D: SIGMOID COLON, "LIPOMA" Clinical History Adenoma surveillance Postoperative diagnosis: Diverticulosis, colon polyps Final Diagnosis A. COLON, RIGHT, POLYP, BIOPSY: POLYPOID COLONIC MUCOSA WITH SMALL LYMPHOID AGGREGATE. B. ASCENDING COLON, POLYP, BIOPSY: HYPERPLASTIC POLYP. C. SIGMOID COLON, POLYP, BIOPSY: HYPERPLASTIC POLYP. D. SIGMOID COLON, "LIPOMA", BIOPSY: HYPERPLASTIC POLYP. NO SUBMUCOSA IDENTIFIED. DEEPER LEVELS HAVE BEEN EXAMINED. Electronically Signed Melody Carrera M.D. Gross Description A. Received in formalin, labeled "biopsy right colon polyp" is a humphrey, irregular portion of soft tissue measuring 0.5 cm. in greatest dimension. The specimen is submitted in toto in one cassette. B. Received in formalin, labeled "biopsy descending colon polyp" are 2 humphrey, irregular portions of soft tissue averaging 0.2 cm. in greatest dimension. The specimens are submitted in toto in one cassette. C. Received in formalin, labeled "biopsy sigmoid colon polyp" is a humphrey, irregular portion of soft tissue measuring 0.3 cm. in greatest dimension. The specimen is submitted in toto in one cassette. D. Received in formalin, labeled "biopsy sigmoid lipoma" are 2 humphrey, irregular portions of soft tissue averaging 0.3 cm. in greatest dimension. The specimens are submitted in toto in one cassette. DL06/24/2019 saudi06/24/2019
== END 2019-06-24 11:57 | disposition home or self-care (01) ==
LOC: JASU-ENDO 09:25
PROVIDERS: ATTEND Internal Medicine Gastroenterology
PROC: 0DBN8ZX Excision of Sigmoid Colon, Via Natural or Artificial Opening Endoscopic, Diagnostic (ICD-10-PCS; 2019-06-24)
PROC: 0DBM8ZX Excision of Descending Colon, Via Natural or Artificial Opening Endoscopic, Diagnostic (ICD-10-PCS; 2019-06-24)
PROC: 0DBK8ZX Excision of Ascending Colon, Via Natural or Artificial Opening Endoscopic, Diagnostic (ICD-10-PCS; principal; 2019-06-24 09:45)
DX: Z86.010 Personal history of colon polyps (principal); D12.2 Benign neoplasm of ascending colon; D12.4 Benign neoplasm of descending colon; D12.5 Benign neoplasm of sigmoid colon; D17.9 Benign lipomatous neoplasm, unspecified; I10 Essential (primary) hypertension; E78.5 Hyperlipidemia, unspecified; E11.9 Type 2 diabetes mellitus without complications; I25.2 Old myocardial infarction; Z95.5 Presence of coronary angioplasty implant and graft
CPT/HCPCS: 82962; 88305-TC